=== PATIENT | female | born 1960 | race Caucasian/White ===

== ENCOUNTER → 2020-10-24 10:45 | Outpatient (BNVA) | payer OTHER, SELFPAY | PROVIDERS: PCP Internal Medicine; Visit Provider Family Medicine Adult Medicine | DX: M54.16 Radiculopathy, lumbar region (principal); M51.36 Other intervertebral disc degeneration, lumbar region | CPT/HCPCS: Q3014 ==

== ENCOUNTER 2021-01-11 12:59 | Outpatient (REF) | payer OTHER, SELFPAY ==
--- NOTE | ~2021-01-11 | US_ITS ---
EXAMINATION: PELVIC ULTRASOUND CLINICAL INFORMATION: Swelling COMPARISON: Previous pelvic ultrasound from 2010 TECHNIQUE: Transabdominal and transvaginal pelvic ultrasound was performed. Transvaginal exam was performed for better visualization of the uterus and ovaries. FINDINGS: Exam is limited due to patient body habitus. The uterus is retroverted and measures 5.7 x 3.4 x 5.7 cm in dimension. There are 2 calcified uterine lesions suggestive of hemorrhage measuring 2.1 x 1.8 x 2.3 cm in the left anterior uterine body and 5 x 2.8 x 4 cm in the right fundus. The endometrium is not well visualized. The endometrium does not appear thickened measuring 0.7 cm. There are nabothian cysts in the cervix. The right ovary is normal-appearing and measures 2.6 x 1.1 x 1.6 cm. The left ovary is not seen. There is no fluid in the pelvis. US/US pelvic complete IMPRESSION: Limited exam to a calcified uterine lesions suggestive of fibroids. These do not not appear appreciably changed in size from previous exam. The endometrium is not well visualized. Normal-appearing right ovary. Left ovary not seen.
--- NOTE | ~2021-01-11 | US_ITS ---
EXAMINATION: PELVIC ULTRASOUND CLINICAL INFORMATION: Swelling COMPARISON: Previous pelvic ultrasound from 2010 TECHNIQUE: Transabdominal and transvaginal pelvic ultrasound was performed. Transvaginal exam was performed for better visualization of the uterus and ovaries. FINDINGS: Exam is limited due to patient body habitus. The uterus is retroverted and measures 5.7 x 3.4 x 5.7 cm in dimension. There are 2 calcified uterine lesions suggestive of hemorrhage measuring 2.1 x 1.8 x 2.3 cm in the left anterior uterine body and 5 x 2.8 x 4 cm in the right fundus. The endometrium is not well visualized. The endometrium does not appear thickened measuring 0.7 cm. There are nabothian cysts in the cervix. The right ovary is normal-appearing and measures 2.6 x 1.1 x 1.6 cm. The left ovary is not seen. There is no fluid in the pelvis. US/US transvaginal IMPRESSION: Limited exam to a calcified uterine lesions suggestive of fibroids. These do not not appear appreciably changed in size from previous exam. The endometrium is not well visualized. Normal-appearing right ovary. Left ovary not seen.
== END 2021-01-11 13:00 | disposition home or self-care (01) ==
LOC: HO.US 12:59
PROVIDERS: PCP Internal Medicine; Visit Provider Internal Medicine
DX: R19.00 Intra-abdominal and pelvic swelling, mass and lump, unspecified site (principal)
CPT/HCPCS: 76830; 76856

== ENCOUNTER → 2021-05-21 13:14 | Outpatient (BNVA) | payer OTHER, SELFPAY | PROVIDERS: PCP Internal Medicine; Visit Provider Internal Medicine | DX: F11.20 Opioid dependence, uncomplicated (principal); F17.200 Nicotine dependence, unspecified, uncomplicated; Z51.81 Encounter for therapeutic drug level monitoring; Z79.899 Other long term (current) drug therapy; Z71.6 Tobacco abuse counseling | CPT/HCPCS: 80305; 99202 ==

== ENCOUNTER 2021-05-29 14:43 | Outpatient (REF) | payer OTHER, SELFPAY ==
[2021-05-29 17:26] LABS: Fentanyl, urine POSITIVE (Not Detect)
== END 2021-05-29 14:44 | disposition home or self-care (01) ==
LOC: HO.LNP 14:43
PROVIDERS: PCP Internal Medicine; Visit Provider Internal Medicine
DX: Z79.899 Other long term (current) drug therapy (principal)
CPT/HCPCS: 80307; 99212

== ENCOUNTER 2021-06-06 14:24 | Outpatient (REF) | payer OTHER, SELFPAY ==
[2021-06-06 18:29] LABS: Fentanyl, urine Not Detected (Not Detect)
== END 2021-06-06 14:25 | disposition home or self-care (01) ==
LOC: HO.LNP 14:24
PROVIDERS: PCP Internal Medicine; Visit Provider Internal Medicine
DX: F11.20 Opioid dependence, uncomplicated (principal); Z79.899 Other long term (current) drug therapy
CPT/HCPCS: 80305; 80307; 99212

== ENCOUNTER 2021-06-12 13:03 | Outpatient (REF) | payer OTHER, SELFPAY ==
[2021-06-12 15:35] LABS: Hematocrit 37.2 % (37-47); Hemoglobin 12.3 g/dl (12.0-16.0); Mean Corpuscular HGB Conc 33.1 g/dl (31.0-35.0); Mean Corpuscular Hemoglobin 29.6 pg (27.0-33.0); Mean Corpuscular Volume 89.4 fL (80-98); Mean Platelet Volume 9.5 fL (9.4-12.3); Platelet Count 293 X10*3/uL (160-400); Red Blood Count 4.16 X10*6/uL (4.20-5.50); Red Cell Distribution Width 14.1 % (11.0-16.0); White Blood Count 6.2 X10*3/uL (4.8-10.8)
[2021-06-12 15:58] LABS: Alanine Aminotransferase 6 U/L (0-31); Albumin Level 4.1 g/dL (3.5-5.0); Alkaline Phosphatase 79 U/L (39-117); Anion Gap 12 (12-20); Aspartate Amino Transferase 14 U/L (5-31); Bilirubin Direct < 0.2 mg/dL (0.0-0.5); Bilirubin Total 0.4 mg/dL (0.0-1.0); Blood Urea Nitrogen 6 mg/dL (9-16); Calcium 8.9 mg/dL (8.4-10.2); Carbon Dioxide 26 mmol/L (22-29); Chloride 105 mmol/L (96-108); Estimated Glomerular Filt Rate > 60; Glucose Random 132 mg/dL (60-115); Potassium 4.2 mmol/L (3.3-5.1); Sodium 139 mmol/L (135-145); Total Protein 6.9 g/dL (6.5-8.0)
[2021-06-13 07:57] LABS: Hepatitis A Antibody IgG Nonreactive (Nonreactive); ~Hepatitis A Antibody IgG 0.33 S/CO (0.00-0.99)
[2021-06-13 07:58] LABS: HBS Num1 2.51 mIU/mL (0-7.99); HBsAGNum1 0.21 S/CO (0.00-0.99); Hepatitis B Surface Antigen Negative (Negative); ~Hepatitis B Surface Antibody NONREACTIVE (Nonreactive)
[2021-06-13 08:06] LABS: HIV AB/AG Nonreactive (Nonreactive); HIV Num 1 0.06 S/CO (0.00-0.99); ~HepC Num1 0.15 S/CO (0.00-0.79); ~Hepatitis C Antibody Nonreactive (Nonreactive)
[2021-06-15 13:22] LABS: TS Negative Control Passed; TS Panel A 0; TS Panel B 0; TS Positive Control Passed; TSpotTB Negative (SeeBelow)
== END 2021-06-12 13:04 | disposition home or self-care (01) ==
LOC: HO.LAB 13:03
PROVIDERS: PCP Internal Medicine; Visit Provider Internal Medicine
DX: F11.20 Opioid dependence, uncomplicated (principal)
CPT/HCPCS: 36415; 80048; 80076; 80305; 85027; 86481; 86706; 86708; 86803; 87340; 87389; 99212

== ENCOUNTER 2021-06-15 13:56 | Outpatient (REF) | payer OTHER, SELFPAY ==
--- NOTE | ~2021-06-15 | XR_ITS ---
EXAMINATION: XR KNEE, LEFT XR FOOT, LEFT CLINICAL INFORMATION: Pain. COMPARISON: Most recent left knee MRI dated 06/12/2021. TECHNIQUE: AP, tunnel, lateral, and sunrise views of the left knee. AP, oblique, and lateral views of the left foot. FINDINGS: LEFT KNEE: Severe lateral compartment joint space narrowing with mild bony remodeling and subchondral sclerosis. Tricompartmental marginal osteophytes. No fracture or dislocation. Small joint effusion. No abnormal soft tissue calcification. LEFT FOOT: No acute fracture or dislocation. Joint space narrowing with marginal osteophytes at the 1st metatarsophalangeal joint and hallux sesamoids. Mild degenerative spurring at the dorsal midfoot. Focal soft tissue swelling overlying the dorsal midfoot, which could indicate an underlying synovial recess versus ganglion cyst. Plantar and dorsal calcaneal enthesophytes. XR/XR knee LT 2V IMPRESSION: Left knee: Severe lateral as well as mild medial and patellofemoral compartment osteoarthritis, progressed when compared to the prior MRI. Left foot: Degenerative arthritis at the dorsal midfoot. Overlying soft tissue swelling which could indicate a synovial recess or ganglion cyst. Osteoarthritis at the 1st metatarsophalangeal joint and hallux sesamoids. Plantar and dorsal calcaneal spurs.
--- NOTE | ~2021-06-15 | XR_ITS ---
EXAMINATION: XR KNEE, LEFT XR FOOT, LEFT CLINICAL INFORMATION: Pain. COMPARISON: Most recent left knee MRI dated 06/12/2021. TECHNIQUE: AP, tunnel, lateral, and sunrise views of the left knee. AP, oblique, and lateral views of the left foot. FINDINGS: LEFT KNEE: Severe lateral compartment joint space narrowing with mild bony remodeling and subchondral sclerosis. Tricompartmental marginal osteophytes. No fracture or dislocation. Small joint effusion. No abnormal soft tissue calcification. LEFT FOOT: No acute fracture or dislocation. Joint space narrowing with marginal osteophytes at the 1st metatarsophalangeal joint and hallux sesamoids. Mild degenerative spurring at the dorsal midfoot. Focal soft tissue swelling overlying the dorsal midfoot, which could indicate an underlying synovial recess versus ganglion cyst. Plantar and dorsal calcaneal enthesophytes. XR/XR foot LT 2V IMPRESSION: Left knee: Severe lateral as well as mild medial and patellofemoral compartment osteoarthritis, progressed when compared to the prior MRI. Left foot: Degenerative arthritis at the dorsal midfoot. Overlying soft tissue swelling which could indicate a synovial recess or ganglion cyst. Osteoarthritis at the 1st metatarsophalangeal joint and hallux sesamoids. Plantar and dorsal calcaneal spurs.
== END 2021-06-15 13:57 | disposition home or self-care (01) ==
LOC: HO.XRAY 13:56
PROVIDERS: PCP Internal Medicine; Visit Provider Internal Medicine
DX: M79.672 Pain in left foot (principal); M25.562 Pain in left knee
CPT/HCPCS: 73560; 73620

== ENCOUNTER → 2021-06-19 15:18 | Outpatient (BNVA) | payer OTHER, SELFPAY | PROVIDERS: Visit Provider Internal Medicine | DX: F11.90 Opioid use, unspecified, uncomplicated (principal) | CPT/HCPCS: 80305; 99212 ==

== ENCOUNTER → 2021-06-26 13:08 | Outpatient (BNVA) | payer OTHER, SELFPAY | PROVIDERS: PCP Internal Medicine; Visit Provider Internal Medicine | DX: F11.90 Opioid use, unspecified, uncomplicated (principal) | CPT/HCPCS: 80305; 99212 ==

== ENCOUNTER 2021-06-29 15:07 | Outpatient (REF) | payer OTHER, SELFPAY ==
--- NOTE | ~2021-06-29 | XR_ITS ---
EXAMINATION: XR HIP, RIGHT CLINICAL INFORMATION: Right hip pain COMPARISON: Previous pelvic ultrasound most recent December 2020 TECHNIQUE: Two views of the right hip. FINDINGS: No fracture or dislocation is seen. There is mild arthritis of the right hip joint with joint space narrowing and osteophyte formation. There is a large soft tissue calcification in the pelvis probably representing a calcified fibroid. Soft tissues are otherwise unremarkable. XR/XR hip RT min 2V IMPRESSION: Mild right hip arthritis.
== END 2021-06-29 15:08 | disposition home or self-care (01) ==
LOC: HO.XRAY 15:07
PROVIDERS: PCP Internal Medicine; Visit Provider Internal Medicine
DX: M25.551 Pain in right hip (principal)
CPT/HCPCS: 73502

== ENCOUNTER → 2021-07-10 14:08 | Outpatient (BNVA) | payer OTHER, SELFPAY | PROVIDERS: Visit Provider Internal Medicine | DX: F11.20 Opioid dependence, uncomplicated (principal); F17.210 Nicotine dependence, cigarettes, uncomplicated | CPT/HCPCS: 80305; 99212 ==

== ENCOUNTER → 2021-07-24 13:55 | Outpatient (BNVA) | payer OTHER, SELFPAY | PROVIDERS: Visit Provider Internal Medicine | DX: F11.90 Opioid use, unspecified, uncomplicated (principal) | CPT/HCPCS: 80305; 99212 ==

== ENCOUNTER → 2021-08-06 11:03 | Outpatient (BNVA) | payer OTHER, SELFPAY | PROVIDERS: Visit Provider Internal Medicine | DX: M54.16 Radiculopathy, lumbar region (principal) | CPT/HCPCS: 99202 ==

== ENCOUNTER → 2021-08-21 13:52 | Outpatient (BNVA) | payer OTHER, SELFPAY | PROVIDERS: PCP Internal Medicine; Visit Provider Internal Medicine | DX: F11.20 Opioid dependence, uncomplicated (principal); F17.210 Nicotine dependence, cigarettes, uncomplicated | CPT/HCPCS: 80305; 99212 ==

== ENCOUNTER → 2021-08-28 13:58 | Outpatient (BNVA) | payer OTHER, SELFPAY | PROVIDERS: PCP Internal Medicine; Visit Provider Internal Medicine | DX: Z51.81 Encounter for therapeutic drug level monitoring (principal); F11.20 Opioid dependence, uncomplicated | CPT/HCPCS: 80305; 99212 ==

== ENCOUNTER 2021-08-28 15:00 | Outpatient (RCR) | payer OTHER, SELFPAY | END 2021-09-11 15:17 | disposition home or self-care (01) | LOC: HO.PT 15:00 | PROVIDERS: PCP Internal Medicine; Visit Provider Internal Medicine | DX: M54.16 Radiculopathy, lumbar region (principal) | CPT/HCPCS: 97110; 97112; 97162 ==

== ENCOUNTER → 2021-09-25 13:21 | Outpatient (BNVA) | payer OTHER, SELFPAY | PROVIDERS: Visit Provider Internal Medicine | DX: Z51.81 Encounter for therapeutic drug level monitoring (principal); F11.20 Opioid dependence, uncomplicated | CPT/HCPCS: 80305; 99212 ==

== ENCOUNTER → 2021-10-23 14:42 | Outpatient (BNVA) | payer OTHER, SELFPAY | PROVIDERS: Visit Provider Internal Medicine | DX: Z51.81 Encounter for therapeutic drug level monitoring (principal); F11.20 Opioid dependence, uncomplicated | CPT/HCPCS: 80305; 99212 ==

== ENCOUNTER → 2021-12-26 14:23 | Outpatient (BNVA) | payer OTHER, SELFPAY | PROVIDERS: Visit Provider Internal Medicine | DX: Z51.81 Encounter for therapeutic drug level monitoring (principal); F11.20 Opioid dependence, uncomplicated | CPT/HCPCS: 80305; 99212 ==

== ENCOUNTER → 2022-02-20 13:51 | Outpatient (BNVA) | payer OTHER, SELFPAY | PROVIDERS: Visit Provider Internal Medicine | DX: Z51.81 Encounter for therapeutic drug level monitoring (principal); F11.20 Opioid dependence, uncomplicated | CPT/HCPCS: 80305 ==

== ENCOUNTER 2022-02-20 17:54 | Outpatient (REF) | payer OTHER, SELFPAY ==
[2022-02-27 09:21] LABS: Codeine, Ur NEGATIVE; Hydrocodone, Ur NEGATIVE; Hydromorphone, Ur NEGATIVE; Morphine, Ur NEGATIVE; Norhydrocodone, Ur NEGATIVE; Oxycodone, Ur NEGATIVE; Oxymorphone, Ur NEGATIVE
[2022-02-27 09:22] LABS: Noroxycodone, Ur NEGATIVE
== END 2022-02-20 17:55 | disposition home or self-care (01) ==
LOC: HO.LNP 17:54
PROVIDERS: Visit Provider Internal Medicine
DX: F11.20 Opioid dependence, uncomplicated (principal)
CPT/HCPCS: 80364; 80365

== ENCOUNTER 2022-04-02 10:14 | Outpatient (REF) | payer OTHER, MEDICAID, SELFPAY ==
--- NOTE | ~2022-04-02 | XR_ITS ---
EXAMINATION: XR WRIST, RIGHT CLINICAL INFORMATION: Right wrist pain. COMPARISON: None. TECHNIQUE: PA, lateral, and oblique views of the right wrist. FINDINGS: The bones and soft tissues are unremarkable. A tiny cyst is seen in the lunate. No fracture. Alignment is anatomic with normal joint spaces. No erosions. No chondrocalcinosis. XR/XR wrist RT min 3V IMPRESSION: Unremarkable right wrist.
== END 2022-04-02 10:15 | disposition home or self-care (01) ==
LOC: HO.HOSX 10:14
PROVIDERS: Visit Provider Orthopaedic Surgery
DX: M25.531 Pain in right wrist (principal); R20.0 Anesthesia of skin; R20.2 Paresthesia of skin
CPT/HCPCS: 73110; 99202

== ENCOUNTER → 2022-04-24 13:07 | Outpatient (BNVA) | payer OTHER, MEDICAID, SELFPAY | PROVIDERS: PCP Internal Medicine; Visit Provider Internal Medicine | DX: F11.20 Opioid dependence, uncomplicated (principal) | CPT/HCPCS: 99212 ==

== ENCOUNTER → 2022-06-18 13:03 | Outpatient (BNVA) | payer OTHER, MEDICAID, SELFPAY | PROVIDERS: PCP Internal Medicine; Visit Provider Internal Medicine | DX: Z51.81 Encounter for therapeutic drug level monitoring (principal); F11.20 Opioid dependence, uncomplicated | CPT/HCPCS: 99212 ==

== ENCOUNTER 2022-08-01 12:25 | Outpatient (REF) | payer MEDICARE, MEDICAID, SELFPAY ==
--- NOTE | 2022-08-01 10:00 | EMG_ITS ---
Bilateral median and ulnar motor and sensory studies were performed. Bilateral radial sensory studies were performed and paraspinal muscles were tested with a needle. IMPRESSION: Moderately severe bilateral median neuropathy across carpal tunnel. MD WINDY Chapin/DARNELL / [id number]
== END 2022-08-01 12:26 | disposition home or self-care (01) ==
LOC: HO.NEURO 12:25
PROVIDERS: PCP Internal Medicine; Visit Provider Orthopaedic Surgery
DX: R20.0 Anesthesia of skin (principal)
CPT/HCPCS: 95886; 95911

== ENCOUNTER → 2022-08-19 14:42 | Outpatient (BNVA) | payer MEDICARE, MEDICAID, SELFPAY | PROVIDERS: PCP Internal Medicine; Visit Provider Internal Medicine | DX: Z51.81 Encounter for therapeutic drug level monitoring (principal); F11.20 Opioid dependence, uncomplicated | CPT/HCPCS: 99212 ==

== ENCOUNTER → 2022-09-17 14:01 | Outpatient (BNVA) | payer MEDICARE, MEDICAID, SELFPAY | PROVIDERS: PCP Internal Medicine; Visit Provider Orthopaedic Surgery | DX: G56.03 Carpal tunnel syndrome, bilateral upper limbs (principal); F11.20 Opioid dependence, uncomplicated; Z72.0 Tobacco use | CPT/HCPCS: 99202 ==

== ENCOUNTER → 2022-10-14 13:02 | Outpatient (BNVA) | payer MEDICARE, MEDICAID, SELFPAY | PROVIDERS: PCP Internal Medicine; Visit Provider Nurse Practitioner Psychiatric/Mental Health | DX: F11.20 Opioid dependence, uncomplicated (principal); M51.16 Intervertebral disc disorders with radiculopathy, lumbar region; M96.1 Postlaminectomy syndrome, not elsewhere classified; F17.210 Nicotine dependence, cigarettes, uncomplicated; Z51.81 Encounter for therapeutic drug level monitoring; Z79.899 Other long term (current) drug therapy | CPT/HCPCS: 80305; 99212 ==

== ENCOUNTER 2022-11-28 14:29 | Day surgery (SDC) | payer MEDICARE, MEDICAID, SELFPAY ==
[2022-11-28 14:45] VITALS: BMI 23.3
--- NOTE | 2022-11-28 15:01 | PC.NURSE ---
report given to zakiya COHEN in pacu at this time.
--- NOTE | 2022-11-28 15:10 | MHC.SHP ---
Pre-Procedural Eval Section A Date of Service: 11/28/22 The patient is an INPATIENT: No Changes since office visit: No Cold of Flu in the past 2 weeks, No New Medical Problems, No Changes in Medication and No Patient answered all questions The History & Physical has been completed within 30 days and I have reviewed it.: Yes Section B Chief Complaint: Carpal tunnel syndrome, right upper limb Allergies: Allergies Allergy/AdvReac Type Severity Reaction Status Date / Time No Known Allergies Allergy Verified 10/14/22 13:17 [No Known Allergies*] Plan I have reviewed the history and physical and performed a pertinent physical examination on my patient. No changes have occurred unless specified. Time Spent With Patient Time: Total time managing care of this patient today ____ minutes.
--- NOTE | 2022-11-28 15:10 | W.PM.OPN ---
Operative Note Operative Note Date of Service: 11/28/22 Narrative: Preop diagnosis: 1. Right Carpal tunnel syndrome Postop diagnosis: same Procedure: 1. Right Carpal tunnel release Surgeon: Nicol Milton MD Anesthesia: local block using 1% lidocaine with epinephrine Findings: Thickened transverse carpal ligament. EBL: Less than 5 mL Specimens: None Complications: None Disposition: Brought to recovery room in stable condition Plan: Follow-up for 10-14 days for wound check and suture removal Indications: The patient is 62 years old, with right carpal tunnel syndrome that has been unresponsive to nonoperative management. The risks and benefits of operative treatment including but not limited to risk of damage to blood vessels, nerves, tendons, infection, persistent pain, persistent symptoms, or possible need for additional surgery were discussed with the patient and the patient wishes to proceed with surgery. Procedure: Once consent was obtained a local block was performed using a combination of 1% lidocaine with epinephrine. The patient was then brought back to the operating suite and placed on the operative table in supine position. The right upper extremity was prepped and draped in a standard surgical fashion. Once assured that we had a good block, a 2.0 cm longitudinal incision was made centered over the carpal tunnel. The incision was made through the skin to the subcutaneous tissues using a #15 blade. Dissection was made down to the level of the transverse carpal ligament with care being taken to protect the palmar cutaneous nerve. Once the transverse carpal ligament was clearly visualized, a longitudinal incision was made in the transverse carpal ligament 1st using a #15 blade, then using tenotomy scissors under direct visualization. Care was taken to look for and protect the motor branch of the median nerve when seen in this area. Once satisfied with our carpal tunnel release the wound was copiously irrigated with normal saline and hemostasis was obtained with a brief period of local pressure. The skin edges were reapproximated with some 5.0 nylon suture material and a sterile dressing was applied. The patient appears to have tolerated the procedure well and with no complications. All digits were well vascularized at the conclusion of the case.
--- NOTE | 2022-11-28 15:12 | PC.NURSE ---
michael preop screen locked by user....patient signing out of preop at this time 15:12 11/28/22 to avani Sampson
[2022-11-28 15:39] VITALS: BP 128/79; RESP 16
== END 2022-11-28 15:56 | disposition home or self-care (01) ==
PROVIDERS: PCP Internal Medicine; Visit Provider Orthopaedic Surgery
PROC: (CPT 64721; principal; 2022-11-28 12:00)
DX: G56.01 Carpal tunnel syndrome, right upper limb (principal); R20.0 Anesthesia of skin; R20.2 Paresthesia of skin; F11.90 Opioid use, unspecified, uncomplicated; M51.36 Other intervertebral disc degeneration, lumbar region; M96.1 Postlaminectomy syndrome, not elsewhere classified; F17.210 Nicotine dependence, cigarettes, uncomplicated; F12.90 Cannabis use, unspecified, uncomplicated
CPT/HCPCS: 64721; J0171

== ENCOUNTER → 2022-12-11 14:15 | Outpatient (BNVA) | payer MEDICARE, MEDICAID, SELFPAY | PROVIDERS: PCP Internal Medicine; Visit Provider Orthopaedic Surgery | DX: Z48.811 Encounter for surgical aftercare following surgery on the nervous system (principal); Z86.69 Personal history of other diseases of the nervous system and sense organs | CPT/HCPCS: 99212 ==

== ENCOUNTER → 2022-12-17 14:23 | Outpatient (BNVA) | payer MEDICARE, MEDICAID, SELFPAY | PROVIDERS: PCP Internal Medicine; Visit Provider Nurse Practitioner Psychiatric/Mental Health | DX: F11.20 Opioid dependence, uncomplicated (principal); M96.1 Postlaminectomy syndrome, not elsewhere classified; F17.210 Nicotine dependence, cigarettes, uncomplicated; Z51.81 Encounter for therapeutic drug level monitoring; Z79.899 Other long term (current) drug therapy | CPT/HCPCS: 99212 ==

== ENCOUNTER → 2023-02-11 14:14 | Outpatient (BNVA) | payer MEDICARE, MEDICAID, SELFPAY | PROVIDERS: PCP Internal Medicine; Visit Provider Nurse Practitioner Psychiatric/Mental Health | DX: Z51.81 Encounter for therapeutic drug level monitoring (principal); F11.20 Opioid dependence, uncomplicated | CPT/HCPCS: 99212 ==

== ENCOUNTER 2023-03-24 09:23 | Outpatient (AMB) | payer MEDICARE, MEDICAID, SELFPAY ==
--- NOTE | 2023-03-24 09:26 | MHC.PC.OV ---
Vital Signs 03/24/23 09:27 Height 5 ft 6 in Weight 144 lb 4 oz BMI 23.3 BP 130/70 Blood Pressure Location Lt brachial Position Sitting Pulse 69 Pulse Source Pulse Oximeter Pulse Oximetry (%) 96 Oxygen Delivery Method Room Air Intake Visit Reasons: left leg pain Intake Note: Patient is here today for left leg pain. 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 Accompanied by: Self / Same As Patient Allergies No Known Allergies [No Known Allergies*] Allergy (Verified 03/24/23 09:27) Medication List - Last Reconciled 03/24/23 by David Lopez MD buprenorphine-naloxone 8-2 mg (Suboxone) 3 film sublingual Q24H 30 days cyclobenzaprine 10 mg PO TID naloxone 4 mg/actuation (Narcan) 4 mg intranasal Q3M PRN Tobacco use date assessed: 03/24/23 Dental Screening Dental Screen Date: 03/24/23 Did you have a dental visit in the last 12 months?: No Did you have a dental problem in the last 6 months where you did not have access to dental care?: No Was dental information given to patient?: No HPI left leg pain HPI Details left leg pain in calf and thigh with some swelling for a week PFSH Medical History Disc degeneration, lumbar Fentanyl use disorder, moderate Opioid use disorder Right lumbar radiculopathy Tobacco use disorder Surgical History Cervical post-laminectomy syndrome H/O section History of carpal tunnel surgery of left wrist History of foot surgery Family History Father Stroke Mother Ovarian cancer Brother No problems noted. Son No problems noted. Son No problems noted. 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 1. Little interest or pleasure in doing things: not at all 2. Feeling down, depressed, or hopeless: not at all 3. Trouble falling or staying asleep, or sleeping too much: not at all 4. Feeling tired or having little energy: not at all 5. Poor appetite or overeating: not at all 6. Feeling bad about yourself - or that you are a failure or have let yourself or your family down: not at all 7. Trouble concentrating on things, such as reading the newspaper or watching television: not at all 8. Moving or speaking so slowly that other people could have noticed. Or the opposite - being so fidgety or restless that you have been moving around a lot more than usual: not at all 9. Thoughts that you would be better off or of hurting yourself in some way: not at all Total score: 0 Depression Screening Interpretation: Negative Source: Developed by Drs. Raheel Bravo, Sabine Talavera, Que Ron and colleagues, with an educational dianne from [employer]. Thrive Questionnaire Date Thrive assessed: 03/24/23 I am a: Patient What is your living situation today?: I have a steady place to live Within the past 12 months, did the food you bought not last and you didn't have the money to get more?: Never true Within the past 12 months, did you worry whether your food would run out before you got money to buy more?: Never true Do you have trouble paying for medicines?: No Do you have trouble getting transportation to medical appointments?: No Do you have trouble paying your heating and electricity bill?: No Do you have trouble taking care of your child, family member or friend?: No Do you have trouble with day-to-day activities such as bathing, preparing meals, shopping, managing finances, etc.?: No Are you currently unemployed and looking for a job?: No Are you interested in more education?: No Currently or been in a relationship where the following occur: no concerns reported AUDIT C Alcohol Use Questionnaire (AUDIT-C) 1. How often do you have a drink containing alcohol?: Never Total Score: 0 FRANCISCO-7 AMB Questionnaire FRANCISCO-7 Date FRANCISCO - 7 assessed: 03/24/23 Feeling nervous, anxious, or on edge: 0 = Not at all Not being able to stop or control worryin = Not at all Worrying too much about different things: 0 = Not at all Trouble relaxin = Not at all Being so restless that it is hard to sit still: 0 = Not at all Becoming easily annoyed or irritable: 0 = Not at all Feeling afraid as if something awful might happen: 0 = Not at all Total FRANCISCO-7 score (0-4 normal; 5-9 mild; 10-14 moderate; 15-21 severe): 0 Source: Developed by Drs. Raheel Bravo, Sabine Talavera, Que Ron and colleagues, with an educational dianne from [employer]. Review of Systems Const Denies chills, Denies headache(s) and Denies weight loss ENT Denies headache(s) Card Denies chest pain, Denies syncope, Denies irregular heart rhythm and Denies dyspnea Resp Denies chest congestion, Denies cough and Denies dyspnea GI Denies abdominal pain, Denies change in stool character, Denies nausea and Denies vomiting Musc Denies deformity and Denies joint swelling Neuro Denies syncope and Denies headache(s) Physical exam (Primary Care) Vital Signs: Last Vital Signs Pulse 69 03/24/23 09:27 BP 130/70 03/24/23 09:27 Pulse Ox 96 03/24/23 09:27 Oxygen Delivery Method Room Air 03/24/23 09:27 BMI result Body Mass Index 23.3 Tobacco/Smoking Status: Tobacco use Status Tobacco use date assessed 03/24/23 03/24/23 09:33 Patient Tobacco Use Status Current everyday Tobacco 03/24/23 09:33 Tobacco use type Cigarette 03/24/23 09:33 e-Cigarette/Vaping Use Never Used 03/24/23 09:33 PHQ-9: PHQ-9 Score PHQ-9: Total score 0 03/24/23 09:33 Depression Screening Interpretation: Negative Thrive Assessment: Date of Thrive Assessment Date Thrive assessed 03/24/23 03/24/23 09:33 Currently or been in a relationship where the following occur: no concerns reported Const General: cooperative, comfortable and no acute distress Resp Effort & Inspection: normal respiratory effort Auscultation: clear to auscultation bilaterally Percussion: percussion normal Cardio Jugular venous distension: no JVD Rate: regular rate Rhythm: regular rhythm GI Inspection: Yes normal to inspection Extrem Other: 1+ edema left lower ext Assessment and Plan Assessment & Plan (1) Leg pain: Code(s): M79.606 - Pain in leg, unspecified Plan: us and rx Orders: Orders US venous duplex LE LT Today R60.0 - Localized edema Medications: New methylprednisolone (Medrol (Krishna)) PO PER PKG DIR 21 ea 0RF Refilled cyclobenzaprine 10 mg PO TID 90 tabs 8RF Coding Level of Care Code Est Pt Level 3 (61127) Diagnoses Leg pain M79.606
[2023-03-24 09:27] VITALS: BP 130/70; PULSE 69; O2SAT 96; BMI 23.3
== END 2023-03-24 09:48 | disposition home or self-care (01) ==
PROVIDERS: PCP Internal Medicine; Visit Provider Internal Medicine
DX: M79.606 Pain in leg, unspecified (principal)
CPT/HCPCS: 99213

== ENCOUNTER 2023-04-02 13:42 | Outpatient (REF) | payer MEDICARE, MEDICAID, SELFPAY ==
--- NOTE | ~2023-04-02 | US_ITS ---
EXAMINATION: US VENOUS ULTRASOUND WITH DOPPLER LOWER EXTREMITY, LEFT CLINICAL INFORMATION: Left leg swelling. COMPARISON: None available. TECHNIQUE: Ultrasound of the deep veins is performed from the hip to the calf with compression sonography and color and pulse Doppler assessment. Spectral analysis with color-flow imaging is performed. FINDINGS: There is normal venous compression and respiratory variation and augmented flow. The visualized common femoral vein, superficial femoral vein, profunda femoral vein, popliteal vein, and the trifurcation region shows no evidence of deep venous thrombosis. There is no significant popliteal fossa cyst. If the patient's symptoms persist, followup ultrasound in 5 days 7 days might be of value to exclude proximal propagation from a non-visualized calf vein. US/US venous duplex LE LT IMPRESSION: No DVT demonstrated in the left lower extremity.
== END 2023-04-02 13:43 | disposition home or self-care (01) ==
LOC: HO.US 13:42
PROVIDERS: PCP Internal Medicine; Visit Provider Internal Medicine
DX: R60.0 Localized edema (principal); M79.89 Other specified soft tissue disorders
CPT/HCPCS: 93971

== ENCOUNTER 2023-04-14 10:23 | Outpatient (AMB) | payer MEDICARE, MEDICAID, SELFPAY ==
--- NOTE | 2023-04-14 10:23 | A.OFFVIS_ITS ---
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 Denies any side effects, including constipation Reports Percocet over the wkend due to ongoing calf pain. Seen by PCP and ultrasound completed-nothing found. Risk reduction discussion. Patient reporting this is not a usual occurrence. Moved into new home recently. Very happy about this [facility] Medical History Disc degeneration, lumbar Fentanyl use disorder, moderate Opioid use disorder Right lumbar radiculopathy Tobacco use disorder Surgical History Cervical post-laminectomy syndrome H/O section History of carpal tunnel surgery of left wrist History of foot surgery Family History Father Stroke Mother Ovarian cancer Brother No problems noted. Son No problems noted. Son No problems noted. 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 Cognitive needs: No Hearing needs: No Vision needs: No Review of Systems Const Reports as per HPI and Reports no additional complaints Physical Exam Vital Signs: Last Vital Signs Pulse 78 04/14/23 10:34 BP 134/84 04/14/23 10:34 Pulse Ox 98 04/14/23 10:34 Oxygen Delivery Method Room Air 04/14/23 10:34 Const General: cooperative, healthy appearing and no acute distress Psych Appearance: well kempt Speech and movement: Clear speech present Results AMB 14 Panel Urine Drug Screen Urine Marijuana (THC) Positive Last Edit by Nickie Steel CMA on 04/14/23 10:37 Urine Cocaine Negative Last Edit by Nickie Steel CMA on 04/14/23 10:37 Urine Morphine Negative Last Edit by Nickie Steel CMA on 04/14/23 10:37 Urine Methamphetamine Negative Last Edit by Nickie Steel CMA on 04/14/23 10:37 Urine Amphetamine Negative Last Edit by Nickie Steel CMA on 04/14/23 10:3 7 Urine Benzodiazepine Negative Last Edit by Nickie Steel CMA on 04/14/23 10:37 Urine Barbiturates Negative Last Edit by Nickie Steel CMA on 04/14/23 10: 37 Urine Methadone Negative Last Edit by Nickie Steel CMA on 04/14/23 10:37 Urine Buprenorphine Positive Last Edit by Nickie Steel CMA on 04/14/23 10 :37 Urine Tricyclic Antidepressant Negative Last Edit by Nickie Steel CMA on 04/14/23 10:37 Urine MDMA Negative Last Edit by Nickie Steel CMA on 04/14/23 10:37 Urine Oxycodone Positive Last Edit by Nickie Steel CMA on 04/14/23 10:37 Urine Phencyclidine Negative Last Edit by Nickie Steel CMA on 04/14/23 10 :37 Urine Propoxyphene Negative Last Edit by Nickie Steel CMA on 04/14/23 10: 37 Results Reviewed Results Reviewed: Laboratory Last Values POC Urine Buprenorphine Positive 04/14/23 10:24 POC Urine Morphine Negative 04/14/23 10:24 POC Urine Oxycodone Positive 04/14/23 10:24 POC Urine Methadone Negative 04/14/23 10:24 POC Urine Propoxyphene Negative 04/14/23 10:24 POC Urine Barbiturates Negative 04/14/23 10:24 POC U Tricyclic Antidpr Negative 04/14/23 10:24 POC Urine PCP Negative 04/14/23 10:24 POC Ur Amphetamines Negative 04/14/23 10:24 POC Ur Methamphetamine Negative 04/14/23 10:24 POC Urine MDMA Negative 04/14/23 10:24 POC Ur Benzodiazepine Negative 04/14/23 10:24 POC Urine Cocaine Negative 04/14/23 10:24 POC Ur Marijuana (THC) Positive 04/14/23 10:24 Assessment & Plan Assessment & Plan (1) Opioid use disorder: Code(s): F11.99 - Opioid use, unspecified with unspecified opioid-induced disorder Plan: * Continue suboxone at current dose * follow up 8 weeks * encouraged to call office if necessary before next scheduled appt. Orders: Orders AMB 14 Panel Urine Drug Screen Today Z51.81 - Encounter for therapeutic drug level monitoring Medications: Changed From buprenorphine-naloxone 8-2 mg (Suboxone) place 1 strip/tab under (each) side of tongue 3 film sublingual Q24H 30 days 90 ea 1RF To buprenorphine-naloxone 8-2 mg (Suboxone) 1 film sublingual TID 90 ea 1RF 30 days Coding Level of Care Code Est Pt Level 3 (79649) Diagnoses Opioid use disorder F11.99
[2023-04-14 10:34] VITALS: BP 134/84; PULSE 78; O2SAT 98
== END 2023-04-14 11:02 | disposition home or self-care (01) ==
LOC: HO.HCC 10:23
PROVIDERS: PCP Internal Medicine; Visit Provider Nurse Practitioner Psychiatric/Mental Health
DX: F11.99 Opioid use, unspecified with unspecified opioid-induced disorder (principal)
CPT/HCPCS: 99213

== ENCOUNTER → 2023-04-14 10:23 | Outpatient (BNVA) | payer MEDICARE, MEDICAID, SELFPAY | PROVIDERS: PCP Internal Medicine; Visit Provider Nurse Practitioner Psychiatric/Mental Health | DX: F11.20 Opioid dependence, uncomplicated (principal); Z51.81 Encounter for therapeutic drug level monitoring; Z79.899 Other long term (current) drug therapy | CPT/HCPCS: 80305; 99212 ==

== ENCOUNTER 2023-06-12 13:01 | Outpatient (AMB) | payer MEDICARE, MEDICAID, SELFPAY ==
--- NOTE | 2023-06-12 13:02 | A.OFFVIS_ITS ---
Intake Vital Signs 06/12/23 13:09 BP 140/86 H Blood Pressure Location Lt radial Position Sitting Pulse 74 Pulse Source Pulse Oximeter Pulse Oximetry (%) 98 Oxygen Delivery Method Room Air Intake Visit Reasons: mat visit Intake Note: The patient presents for a mat visit Flatbed Press Operator Required: No Allergies No Known Allergies [No Known Allergies*] Allergy (Verified 06/12/23 13:10) HPI mat visit HPI Details Pt presents for OUD treatment follow up Currently being prescribed Suboxone 8mg TID Denies any side effects related to medication Settling into her new home. [facility] Medical History Disc degeneration, lumbar Fentanyl use disorder, moderate Opioid use disorder Right lumbar radiculopathy Tobacco use disorder Surgical History Cervical post-laminectomy syndrome H/O section History of carpal tunnel surgery of left wrist History of foot surgery Family History Father Stroke Mother Ovarian cancer Brother No problems noted. Son No problems noted. Son No problems noted. 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 Cognitive needs: No Hearing needs: No Vision needs: No Review of Systems Const Reports as per HPI and Reports no additional complaints Physical Exam Vital Signs: Last Vital Signs Pulse 74 06/12/23 13:09 BP 140/86 H 06/12/23 13:09 Pulse Ox 98 06/12/23 13:09 Oxygen Delivery Method Room Air 06/12/23 13:09 Const General: cooperative, healthy appearing and no acute distress Psych Appearance: well kempt Speech and movement: Clear speech present Assessment & Plan Assessment & Plan (1) Opioid use disorder: Code(s): F11.99 - Opioid use, unspecified with unspecified opioid-induced disorder Plan: * Continue suboxone at current dose * follow up 8 weeks * encouraged to call office if necessary before next scheduled appt. Medications: Refilled buprenorphine-naloxone 8-2 mg (Suboxone) 1 film sublingual TID 30 days 90 ea 1RF Coding Level of Care Code Est Pt Level 3 (48925) Diagnoses Opioid use disorder F11.99
[2023-06-12 13:09] VITALS: BP 140/86; PULSE 74; O2SAT 98
== END 2023-06-12 13:46 | disposition home or self-care (01) ==
PROVIDERS: PCP Internal Medicine; Visit Provider Nurse Practitioner Psychiatric/Mental Health
DX: F11.99 Opioid use, unspecified with unspecified opioid-induced disorder (principal)
CPT/HCPCS: 99213

== ENCOUNTER → 2023-06-12 13:01 | Outpatient (BNVA) | payer MEDICARE, MEDICAID, SELFPAY | PROVIDERS: PCP Internal Medicine; Visit Provider Nurse Practitioner Psychiatric/Mental Health | DX: F11.20 Opioid dependence, uncomplicated (principal) | CPT/HCPCS: 99212 ==

== ENCOUNTER 2023-07-31 11:29 | Outpatient (AMB) | payer MEDICARE, MEDICAID, SELFPAY ==
[2023-07-31 11:30] VITALS: BP 120/82; PULSE 83; O2SAT 99; BMI 22.6
--- NOTE | 2023-07-31 11:30 | MHC.PC.OV ---
Vital Signs 07/31/23 11:30 Height 5 ft 6 in Weight 140 lb BMI 22.6 BP 120/82 Blood Pressure Location Lt brachial Position Sitting Pulse 83 Pulse Source Pulse Oximeter Pulse Oximetry (%) 99 Oxygen Delivery Method Room Air Intake Visit Reasons: Left hammer toe correction, 08/15, EKG/Labs needed Hot Room Attendant Required: No Partition Assembly Machine Operator: Not Required per policy Accompanied by: Self / Same As Patient Allergies No Known Allergies [No Known Allergies*] Allergy (Verified 07/31/23 11:31) Medication List - Last Reconciled 08/01/23 by David Lopez MD buprenorphine-naloxone 8-2 mg (Suboxone) 1 film sublingual TID 30 days cyclobenzaprine 10 mg PO TID Tobacco use date assessed: 03/24/23 Dental Screening Dental Screen Date: 07/31/23 Did you have a dental visit in the last 12 months?: No Did you have a dental problem in the last 6 months where you did not have access to dental care?: No Was dental information given to patient?: Patient has dentist HPI Left hammer toe correction, 08/15, EKG/Labs needed HPI Details to have podiatric surgery on her left foot; has chronic narcotic use and is on Suboxone; doing well and compliant; no history of CAD [facility] Medical History Tobacco use disorder Fentanyl use disorder, moderate Opioid use disorder Disc degeneration, lumbar Right lumbar radiculopathy Surgical History History of foot surgery History of carpal tunnel surgery of left wrist H/O section Cervical post-laminectomy syndrome Family History Father Stroke Mother Ovarian cancer Brother No problems noted. Son No problems noted. Son No problems noted. 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 Raheel Bravo, Sabine Talavera, Que Ron and colleagues, with an educational dianne from [employer]. Review of Systems Const Denies chills, Denies fatigue, Denies headache(s) and Denies weight loss Eyes Denies change in vision, Denies diplopia and Denies eye pain ENT Denies vertigo, Denies dizziness, Denies headache(s) and Denies nasal discharge Card Denies chest pain, Denies rapid heart rate and Denies dyspnea on exertion Resp Denies chest congestion, Denies cough, Denies pain with cough and Denies dyspnea on exertion GI Denies abdominal pain, Denies hematochezia and Denies change in bowel habits Musc Denies myalgias, Denies arthralgias and Denies joint swelling Skin/Breast Denies lesions and Denies unusual bruising Neuro Denies vertigo, Denies dizziness, Denies headache(s) and Denies focal weakness Endo Denies fatigue Physical exam (Primary Care) Vital Signs: Last Vital Signs Pulse 83 07/31/23 11:30 BP 120/82 07/31/23 11:30 Pulse Ox 99 07/31/23 11:30 Oxygen Delivery Method Room Air 07/31/23 11:30 BMI result Body Mass Index 22.6 Tobacco/Smoking Status: Tobacco use Status Tobacco use date assessed 03/24/23 07/31/23 11:35 Patient Tobacco Use Status Current everyday Tobacco 07/31/23 11:35 Tobacco use type Cigarette 07/31/23 11:35 e-Cigarette/Vaping Use Never Used 07/31/23 11:35 Thrive Assessment: Date of Thrive Assessment Date Thrive assessed 03/24/23 07/31/23 11:35 Const General: cooperative, healthy appearing and no acute distress Orientation/consciousness: oriented to person, oriented to place and oriented to time HENMT Head: Yes normal to inspection, Yes normocephalic and Yes atraumatic Mouth: Normal oral and palatal mucosa present and tongue normal Throat: Yes posterior oropharynx normal and Yes uvula midline Eyes General: appearance normal, both eyes and all related structures Neck Neck: Yes normal visual inspection, Yes full ROM and Yes no lymphadenopathy Thyroid: Thyroid normal Carotids: normal carotid upstroke Chest Chest palpation & inspection: normal inspection of the chest Resp Effort & Inspection: normal respiratory effort and able to speak in complete sentences Auscultation: clear to auscultation bilaterally Cardio Jugular venous distension: no JVD Palpation: normal PMI Rate: regular rate Rhythm: regular rhythm Heart sounds: S1 normal heart sound present and S2 normal heart sound present GI Inspection: Yes normal to inspection Palpation (GI): Soft to palpation and No hepatosplenomegaly present Auscultation: normal bowel sounds General: Yes no CVA tenderness Back/Spine/Pelvis Back: no CVA tenderness Skin General skin exam: no rashes or lesions noted Neuro General: oriented to person, oriented to place and oriented to time Extrem General: Yes normal to inspection and Yes full ROM Assessment and Plan Assessment & Plan (1) Preop exam for internal medicine: Code(s): Z01.818 - Encounter for other preprocedural examination Plan: low risk for cardiovascular complications; cleared for surgery (2) Opioid use disorder: Code(s): F11.99 - Opioid use, unspecified with unspecified opioid-induced disorder Plan: stable and compliant on regimen Orders: Orders Complete Blood Count Auto Diff 07/31/23 D64.9 - Anemia, unspecified ECG 12 lead EKG 07/31/23 Z01.818 - Encounter for other preprocedural examination Coding Level of Care Code Est Pt Level 4 (01510) Diagnoses Preop exam for internal medicine Z01.818 Opioid use disorder F11.99
== END 2023-07-31 11:44 | disposition home or self-care (01) ==
PROVIDERS: PCP Internal Medicine; Visit Provider Internal Medicine
DX: Z01.818 Encounter for other preprocedural examination (principal); F11.99 Opioid use, unspecified with unspecified opioid-induced disorder
CPT/HCPCS: 99214

== ENCOUNTER 2023-07-31 11:51 | Outpatient (REF) | payer MEDICARE, MEDICAID, SELFPAY ==
--- NOTE | 2023-07-31 12:03 | ECG_ITS ---
Test Reason : PRE OP Blood Pressure : / mmHG Vent. Rate : 073 BPM Atrial Rate : 073 BPM P-R Int : 138 ms QRS Dur : 094 ms QT Int : 388 ms P-R-T Axes : 074 054 049 degrees QTc Int : 427 ms Normal sinus rhythm Normal ECG When compared with ECG of 23-APR-2019 14:05, No significant change was found Referred By: David Lopez Electronically Signed By:ANTONIA WHEAT MD
[2023-07-31 12:17] LABS: MANUAL DIFF FLAG NO
[2023-07-31 12:34] LABS: Basophils Absolute Auto 0.1 X10*3/uL (0.0-0.2); Basophils Percent Auto 0.9 % (0-2); Eosinophils Absolute Auto 0.1 X10*3/uL (0.0-0.4); Eosinophils Percent Auto 1.2 % (0-4); Hematocrit 40.7 % (37.0-47.0); Hemoglobin 13.2 g/dl (12.0-16.0); Imm Gran Abs Auto 0.02 X10*3/uL (0.00-0.03); Imm Gran Pct Auto 0.2 % (0.0-0.4); Lymphocytes Absolute Auto 1.7 X10*3/uL (1.2-4.9); Lymphocytes Percent Auto 19.4 % (20-40); Mean Corpuscular HGB Conc 32.4 g/dl (31.0-35.0); Mean Corpuscular Hemoglobin 28.6 pg (27.0-33.0); Mean Corpuscular Volume 88.1 fL (80.0-98.0); Mean Platelet Volume 9.4 fL (9.4-12.3); Monocytes Absolute Auto 0.8 X10*3/uL (0.1-1.2); Monocytes Percent Auto 8.9 % (2-11); Neutrophils Absolute Auto 5.9 x10*3/uL (2.0-8.3); Neutrophils Percent Auto 69.4 % (45-73); Platelet Count 216 X10*3/uL (160-400); Red Blood Count 4.62 X10*6/uL (4.20-5.50); White Blood Count 8.5 X10*3/uL (4.8-10.8)
== END 2023-07-31 11:52 | disposition home or self-care (01) ==
LOC: HO.LAB 11:51
PROVIDERS: PCP Internal Medicine; Visit Provider Internal Medicine
DX: Z01.818 Encounter for other preprocedural examination (principal); D64.9 Anemia, unspecified
CPT/HCPCS: 36415; 85025; 93005

== ENCOUNTER → 2023-07-31 12:03 | Outpatient (BNV) | payer MEDICARE, MEDICAID, SELFPAY | PROVIDERS: PCP Internal Medicine; Visit Provider Internal Medicine Cardiovascular Disease | DX: Z01.818 Encounter for other preprocedural examination (principal); M79.675 Pain in left toe(s) | CPT/HCPCS: 93010 ==

== ENCOUNTER 2023-08-07 12:59 | Outpatient (AMB) | payer MEDICARE, MEDICAID, SELFPAY ==
--- NOTE | 2023-08-07 13:00 | A.OFFVIS_ITS ---
Intake Vital Signs 08/07/23 13:06 BP 126/84 Blood Pressure Location Lt radial Position Sitting Pulse 75 Pulse Source Pulse Oximeter Pulse Oximetry (%) 96 Oxygen Delivery Method Room Air Intake Visit Reasons: mat visit Intake Note: the patient presents for a mat visit Mail Machine Operator Required: No Allergies No Known Allergies [No Known Allergies*] Allergy (Verified 08/07/23 13:07) Do you need a note to return to daycare/school/sports/work: No HPI mat visit HPI Details Patient presents for treatment and follow up She is continuing to settle into her new house, has done some decorating for [employer] Reports she is having bunion surgery performed on her foot 08/15 at [facility] Was told by her provider to stop suboxone 48 hrs prior to surgery- counseled by t/w that she can continue her MAT through surgery, pt relieved by this as she was worrying about experiencing withdrawals. She denies any other concerns today, no concerns related to recovery. [facility] Medical History Tobacco use disorder Fentanyl use disorder, moderate Opioid use disorder Disc degeneration, lumbar Right lumbar radiculopathy Surgical History History of foot surgery History of carpal tunnel surgery of left wrist H/O section Cervical post-laminectomy syndrome Family History Father Stroke Mother Ovarian cancer Brother No problems noted. Son No problems noted. Son No problems noted. 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 Cognitive needs: No Hearing needs: No Vision needs: No Review of Systems Const Reports as per HPI Physical Exam Vital Signs: Last Vital Signs Pulse 75 08/07/23 13:06 BP 126/84 08/07/23 13:06 Pulse Ox 96 08/07/23 13:06 Oxygen Delivery Method Room Air 08/07/23 13:06 Const General: cooperative, comfortable and no acute distress Resp Effort & Inspection: normal respiratory effort Skin General skin exam: no rashes or lesions noted Psych Appearance: grossly normal and well kempt Mental Status: mental status grossly normal Speech and movement: Normal speech and movement present Affect: normal affect Attitude: cooperative Insight: Good insight present (Psych) Assessment & Plan Assessment & Plan (1) Opioid use disorder: Code(s): F11.99 - Opioid use, unspecified with unspecified opioid-induced disorder Plan: Continue suboxone at current dose Continue taking suboxone as prescribed leading up to and through receiving surgery Encouraged to call [facility] with any questions Follow up 8 weeks Medications: Refilled buprenorphine-naloxone 8-2 mg (Suboxone) 1 film sublingual TID 30 days 90 ea 1RF Coding Level of Care Code Est Pt Level 3 (33917) Diagnoses Opioid use disorder F11.99
[2023-08-07 13:06] VITALS: BP 126/84; PULSE 75; O2SAT 96
== END 2023-08-07 13:54 | disposition home or self-care (01) ==
PROVIDERS: PCP Internal Medicine; Visit Provider Nurse Practitioner Family
DX: F11.99 Opioid use, unspecified with unspecified opioid-induced disorder (principal)
CPT/HCPCS: 99213

== ENCOUNTER → 2023-08-07 12:59 | Outpatient (BNVA) | payer MEDICARE, MEDICAID, SELFPAY | PROVIDERS: PCP Internal Medicine; Visit Provider Nurse Practitioner Family | DX: F11.20 Opioid dependence, uncomplicated (principal) | CPT/HCPCS: 99212 ==

== ENCOUNTER 2023-10-02 12:57 | Outpatient (AMB) | payer MEDICARE, MEDICAID, SELFPAY ==
[2023-10-02 13:17] VITALS: BP 140/60; PULSE 71; RESP 19; O2SAT 99
--- NOTE | 2023-10-02 13:17 | A.OFFVISCC_ITS ---
Intake Vital Signs 10/02/23 13:17 BP 140/60 H Blood Pressure Location Lt brachial Position Sitting Respiration 19 Pulse 71 Pulse Source Pulse Oximeter Pulse Oximetry (%) 99 Oxygen Delivery Method Room Air Intake Visit Reasons: mat visit Allergies No Known Allergies [No Known Allergies*] Allergy (Verified 08/07/23 13:07) HPI mat visit HPI Details Pt presents today for MAt follow up She reports she is experiencing multiple stressors, her has stage 4 cancer she has been managing his care and has been experiencing insurance challenges She admits she over took her suboxone a few of the days last month. She feels as though her dose is adequate and does not want a dose change, she feels as though she was overtaking as a reaction to the increased stress She reports her bunion surgery was successful and that she is still healing She denies concerns with side effects [facility] Medical History Tobacco use disorder Fentanyl use disorder, moderate Opioid use disorder Disc degeneration, lumbar Right lumbar radiculopathy Surgical History History of foot surgery History of carpal tunnel surgery of left wrist H/O section Cervical post-laminectomy syndrome Family History Father Stroke Mother Ovarian cancer Brother No problems noted. Son No problems noted. Son No problems noted. 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 Cognitive needs: No Hearing needs: No Vision needs: No Review of Systems Const Reports as per HPI Physical Exam Vital Signs: Last Vital Signs Pulse 71 10/02/23 13:17 Resp 19 10/02/23 13:17 BP 140/60 H 10/02/23 13:17 Pulse Ox 99 10/02/23 13:17 Oxygen Delivery Method Room Air 10/02/23 13:17 Const General: cooperative and no acute distress Resp Effort & Inspection: normal respiratory effort and able to speak in complete sentences Psych Appearance: grossly normal Mental Status: mental status grossly normal Speech and movement: Normal speech and movement present Affect: Sad affect present Attitude: cooperative Thought process: Normal thought process present Thought content: Normal thought content present Assessment & Plan Assessment & Plan (1) Opioid use disorder: Code(s): F11.99 - Opioid use, unspecified with unspecified opioid-induced disorder Plan -Mass pat reviewed -Cont suboxone same dose - Reviewed with patient to take her dose as prescribed, if she feels as though her dose is inadequate to call the office -Follow up 8 weeks Medications: Refilled buprenorphine-naloxone 8-2 mg (Suboxone) 1 film sublingual TID 30 days 90 ea 1RF buprenorphine-naloxone 8-2 mg (Suboxone) 1 film sublingual TID 30 days 90 ea 1RF Coding Level of Care Code Est Pt Level 3 (80218) Diagnoses Opioid use disorder F11.99
== END 2023-10-02 13:41 | disposition home or self-care (01) ==
PROVIDERS: PCP Internal Medicine; Visit Provider Nurse Practitioner Family
DX: F11.99 Opioid use, unspecified with unspecified opioid-induced disorder (principal)
CPT/HCPCS: 99213

== ENCOUNTER → 2023-10-02 12:57 | Outpatient (BNVA) | payer MEDICARE, MEDICAID, SELFPAY | PROVIDERS: PCP Internal Medicine; Visit Provider Nurse Practitioner Family | DX: F11.20 Opioid dependence, uncomplicated (principal) | CPT/HCPCS: 99212 ==

== ENCOUNTER 2023-11-27 12:58 | Outpatient (AMB) | payer OTHER, SELFPAY ==
--- NOTE | 2023-11-27 13:03 | MHC.AM.SUB ---
Intake Vital Signs 11/27/23 13:09 BP 140/84 H Blood Pressure Location Lt radial Position Sitting Pulse 54 Pulse Source Pulse Oximeter Pulse Oximetry (%) 99 Oxygen Delivery Method Room Air Intake Visit Reasons: mat visit Intake Note: The patient presents for a mat visit Director Of Analytics Required: No Allergies No Known Allergies [No Known Allergies*] Allergy (Verified 11/27/23 13:03) Do you need a note to return to daycare/school/sports/work: No HPI mat visit HPI Details Patient presents for MAT visit Reports her is doing better than he was when she had her previous visit She has been tolerating suboxone 8mg tid, has continued to overtake by 4mg here and there when her pain has been bad T/w tried to encourage her to consider a dose change if she feels her dose has been inadequate, she declines at this time Has no other concerns at this time [facility] Medical History Tobacco use disorder Fentanyl use disorder, moderate Opioid use disorder Disc degeneration, lumbar Right lumbar radiculopathy Surgical History History of foot surgery History of carpal tunnel surgery of left wrist H/O section Cervical post-laminectomy syndrome Family History Father Stroke Mother Ovarian cancer Brother No problems noted. Son No problems noted. Son No problems noted. 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 Cognitive needs: No Hearing needs: No Vision needs: No Review of Systems Const Reports as per HPI Physical Exam Vital Signs: Last Vital Signs Pulse 54 11/27/23 13:09 BP 140/84 H 11/27/23 13:09 Pulse Ox 99 11/27/23 13:09 Oxygen Delivery Method Room Air 11/27/23 13:09 Const General: cooperative Resp Effort & Inspection: normal respiratory effort Psych Appearance: grossly normal Mental Status: mental status grossly normal Speech and movement: Normal speech and movement present Affect: normal affect Attitude: cooperative Thought process: Normal thought process present Thought content: Normal thought content present Assessment & Plan Assessment & Plan (1) Opioid use disorder: Code(s): F11.99 - Opioid use, unspecified with unspecified opioid-induced disorder Plan: -Mass pat reviewed -Continue suboxone same dose -Follow up 8 weeks, sooner if necessary Medications: Refilled buprenorphine-naloxone 8-2 mg (Suboxone) 1 film sublingual TID 90 ea 1RF 30 days Coding Level of Care Code Est Pt Level 3 (89493) Diagnoses Opioid use disorder F11.99
[2023-11-27 13:09] VITALS: BP 140/84; PULSE 54; O2SAT 99
== END 2023-11-27 13:46 | disposition home or self-care (01) ==
PROVIDERS: PCP Internal Medicine; Visit Provider Nurse Practitioner Family
DX: F11.99 Opioid use, unspecified with unspecified opioid-induced disorder (principal)
CPT/HCPCS: 99213

== ENCOUNTER → 2023-11-27 12:58 | Outpatient (BNVA) | payer OTHER, SELFPAY | PROVIDERS: PCP Internal Medicine; Visit Provider Nurse Practitioner Family | DX: F11.20 Opioid dependence, uncomplicated (principal) | CPT/HCPCS: 99212 ==

== ENCOUNTER 2024-01-22 12:49 | Outpatient (AMB) | payer OTHER, SELFPAY ==
[2024-01-22 12:55] VITALS: BP 142/90; PULSE 94; O2SAT 96
--- NOTE | 2024-01-22 12:55 | MHC.AM.SUB ---
Vital Signs 01/22/24 12:55 BP 142/90 H Blood Pressure Location Rt brachial Position Sitting Pulse 94 Pulse Source Pulse Oximeter Pulse Oximetry (%) 96 Oxygen Delivery Method Room Air Intake Visit Reasons: mat visit Allergies No Known Allergies [No Known Allergies*] Allergy (Verified 11/27/23 13:03) HPI HPI mat visit: Details: Patient presents for MAT visit States she is having foot surgery on 02/[address] [facility] Reports some interpersonal issues between her son and girlfriend that reside with her that has been causing her distress She has been taking suboxone 8mg TID and is tolerating well, she denies concerns regarding dose or side effects at this time HPI Comments Details: Patient presents for MAT visit [facility] Medical History Tobacco use disorder Fentanyl use disorder, moderate Opioid use disorder Disc degeneration, lumbar Right lumbar radiculopathy Surgical History History of foot surgery History of carpal tunnel surgery of left wrist H/O section Cervical post-laminectomy syndrome Family History Father Stroke Mother Ovarian cancer Brother No problems noted. Son No problems noted. Son No problems noted. 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 Cognitive needs: No Hearing needs: No Vision needs: No Review of Systems Const Reports as per HPI Physical Exam Vital Signs: Last Vital Signs Pulse 94 01/22/24 12:55 BP 142/90 H 01/22/24 12:55 Pulse Ox 96 01/22/24 12:55 Oxygen Delivery Method Room Air 01/22/24 12:55 Const General: cooperative and no acute distress Resp Effort & Inspection: normal respiratory effort and able to speak in complete sentences Psych Appearance: grossly normal Mental Status: mental status grossly normal Speech and movement: Normal speech and movement present Affect: normal affect Attitude: cooperative Thought process: Normal thought process present Assessment & Plan Assessment & Plan (1) Opioid use disorder: Code(s): F11.99 - Opioid use, unspecified with unspecified opioid-induced disorder Category: Medical Plan: -Instructed her to continue her suboxone as prescribed right up until and after surgery, educated her that she may require higher doses of pain medication to address her pain post surgery. Reviewed with her to call the clinic if she has any questions or concerns. -Mass pat reviewed -Suboxone rx sent to pharmacy -Follow up 8 weeks Medications: Refilled buprenorphine-naloxone 8-2 mg (Suboxone) 1 film sublingual TID 90 ea 1RF 30 days
== END 2024-01-22 13:38 | disposition home or self-care (01) ==
PROVIDERS: PCP Internal Medicine; Visit Provider Nurse Practitioner Family
DX: F11.99 Opioid use, unspecified with unspecified opioid-induced disorder (principal)
CPT/HCPCS: 99213

== ENCOUNTER → 2024-01-22 12:49 | Outpatient (BNVA) | payer OTHER, SELFPAY | PROVIDERS: PCP Internal Medicine; Visit Provider Nurse Practitioner Family | DX: F11.20 Opioid dependence, uncomplicated (principal); Z51.81 Encounter for therapeutic drug level monitoring; Z79.899 Other long term (current) drug therapy | CPT/HCPCS: 99212 ==

== ENCOUNTER 2024-02-17 10:50 | Outpatient (REF) | payer OTHER, SELFPAY ==
--- NOTE | ~2024-02-17 | XR_ITS ---
EXAMINATION: XR SHOULDER, RIGHT CLINICAL INFORMATION: Pain in unspecified shoulder. COMPARISON: None available. TECHNIQUE: AP external rotation, Grashey, scapular Y, and axillary views of the right shoulder. FINDINGS: The bones are diffusely demineralized. Mild arthritic changes in the acromioclavicular joint. Dextroscoliosis with degenerative changes in the imaged upper thoracic spine. Mild degenerative changes in the glenohumeral joint. No abnormal soft tissue calcifications appreciated adjacent to the humeral head. XR/XR shoulder RT min 2V IMPRESSION: 1. Mild degenerative changes in the acromioclavicular and glenohumeral joints. 2. Dextroscoliosis with degenerative changes in the imaged upper thoracic spine.
== END 2024-02-17 10:51 | disposition home or self-care (01) ==
LOC: HO.XRAY 10:50
PROVIDERS: PCP Internal Medicine; Visit Provider Internal Medicine
DX: M25.511 Pain in right shoulder (principal)
CPT/HCPCS: 73030

== ENCOUNTER 2024-03-18 12:59 | Outpatient (AMB) | payer OTHER, SELFPAY ==
--- NOTE | 2024-03-18 13:15 | MHC.AM.SUB ---
Intake Visit Reasons: mat visit Allergies No Known Allergies [No Known Allergies*] Allergy (Verified 11/27/23 13:03) HPI HPI mat visit: Details: Patient presents for follow up Currently prescribed suboxone 8mg TID No issues related to medication concerned regarding her husbands health--has to see oncologist on Friday [facility] Medical History (Updated 03/18/24 @ 13:34 by Aure Aparicio CNP) Tobacco use disorder Fentanyl use disorder, moderate Opioid use disorder Disc degeneration, lumbar Right lumbar radiculopathy Surgical History History of foot surgery History of carpal tunnel surgery of left wrist H/O section Cervical post-laminectomy syndrome Family History Father Stroke Mother Ovarian cancer Brother No problems noted. Son No problems noted. Son No problems noted. 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 Cognitive needs: No Hearing needs: No Vision needs: No Review of Systems Const Reports as per HPI and Reports no additional complaints Physical Exam Const General: cooperative and no acute distress Psych Appearance: grossly normal Mental Status: mental status grossly normal Speech and movement: Normal speech and movement present Affect: normal affect Attitude: cooperative Thought process: Normal thought process present Assessment & Plan Assessment & Plan (1) Opioid use disorder, moderate, in sustained remission: Code(s): F11.21 - Opioid dependence, in remission Category: Medical Plan: continue suboxone at current dose ] follow up 3 months Medications: Refilled buprenorphine-naloxone 8-2 mg (Suboxone) 1 film sublingual TID 30 days 90 ea 2RF
== END 2024-03-18 14:24 | disposition home or self-care (01) ==
PROVIDERS: PCP Internal Medicine; Visit Provider Nurse Practitioner Psychiatric/Mental Health
DX: F11.21 Opioid dependence, in remission (principal)
CPT/HCPCS: 99213

== ENCOUNTER → 2024-03-18 12:59 | Outpatient (BNVA) | payer OTHER, SELFPAY | PROVIDERS: PCP Internal Medicine; Visit Provider Nurse Practitioner Psychiatric/Mental Health | DX: F11.21 Opioid dependence, in remission (principal) | CPT/HCPCS: 99212 ==

== ENCOUNTER 2024-03-25 09:58 | Outpatient (AMB) | payer OTHER, SELFPAY ==
--- NOTE | 2024-03-25 10:16 | MHC.OFFVIS ---
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 no hx of injury. Patient reports ongoing pain for a couple months. She expresses that her pain is worse when doing/brushing her hair. Patient hasn't taken any medication to help with the pain. Pain is on the anterior aspect of the shoulder and sometimes it radiates down to her arm. 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 She claims that the pain has persisted for a couple of months. She denies any history of injury. She says that when she does or brushes her hair, her pain gets worse. She denies taking any medicine to ease her discomfort. She has been experiencing pain on the anterior aspect of her shoulder, which occasionally radiates down into her arm. She reports that she has limited range of motion. She reports that she feels numbness and tingling in her shoulder. She claims that she has difficulty raising her right arm as compared to her left arm. She denies any treatment in the past. [facility] Medical History (Updated 03/25/24 @ 10:42 by Casey Hunt PA-C) Tobacco use disorder Fentanyl use disorder, moderate Opioid use disorder Disc degeneration, lumbar Right lumbar radiculopathy Surgical History History of foot surgery History of carpal tunnel surgery of left wrist H/O section Cervical post-laminectomy syndrome Family History Father Stroke Mother Ovarian cancer Brother No problems noted. Son No problems noted. Son No problems noted. 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 Cognitive needs: No Hearing needs: No Vision needs: No Review of Systems Const All systems reviewed & are unremarkable except as noted in HPI and below Physical Exam Vital Signs: BMI result Body Mass Index 24.2 Const General: cooperative, healthy appearing, comfortable and no acute distress Orientation/consciousness: patient oriented x3 Neck Neck: Yes normal visual inspection and Yes no JVD Chest Chest palpation & inspection: normal inspection of the chest Resp Effort & Inspection: normal respiratory effort Auscultation: clear to auscultation bilaterally, crackles (no), rales (no), rhonchi (no) and wheezes (no) Cardio Jugular venous distension: no JVD Rate: regular rate Rhythm: regular rhythm Heart sounds: S1 normal heart sound present, S2 normal heart sound present, Murmur heart sound present (no) and Rub heart sound present (no) Peripheral pulses: Peripheral pulses 2+ throughout Neuro General: patient oriented x3 Extrem Other: Right shoulder: Normal to inspection. Tenderness over the bicipital groove and along the deltoid region of the shoulder. Forward flexion to 175, external rotation to 90, internal rotation to S1. 5/5 RTC strength. Positive Decker and cross body abduction. NVI. General: Yes normal to inspection, Yes no pedal edema and Yes no calf tenderness Psych Appearance: grossly normal Mental Status: mental status grossly normal Speech and movement: Normal speech and movement present Office Procedures Joint Injection/Drain Joint Injection/Drain Primary Site: right shoulder Prep: site was prepped using aseptic technique, ethochloride spray was applied and injection warnings given Injected: 80 mg of, DepoMedrol, with 8 mL of, 1% plain lidocaine and in the subcromial space Approach Used: posterolateral Procedure: The patient tolerated the procedure well and there was some relief with the local anesthesia Coding 36911 - Glenohumeral/Tronchanteric Bursa/Intraarticular Procedure code (CPT) selection complete Results Reviewed Results Reviewed: xrays of the right shoulder obtained on 02/17/24 show ac joint of, well preserved gh joint Assessment & Plan Assessment & Plan (1) Right shoulder tendinitis: Code(s): M77.8 - Other enthesopathies, not elsewhere classified Category: Medical (2) Osteoarthritis of acromioclavicular joint: Code(s): M19.019 - Primary osteoarthritis, unspecified shoulder Category: Medical Plan We discussed options today, which include steroid injection. The patient did consent to move forward with the right shoulder injection, which was tolerated well. I recommended rest, ice, and elevation and OTC anti-inflammatories as needed for discomfort. If symptoms persist over the next 6-8 weeks, they will contact the office, otherwise as needed. I will give her handout about some home exercises. Patient Instructions: Scribed for Casey Hunt PA-C, by Esteban Velez medical physiologist, on 03/25/2024 at 10:00 AM EST. I, Casey Hunt PA-C, have personally reviewed and agree with the information entered by the scribe. Coding Level of Care Code New Pt Level 3 (71825) Diagnoses Right shoulder tendinitis M77.8 Osteoarthritis of acromioclavicular joint M19.019 CPT Codes Coding - Joint 7: 81198 - Glenohumeral/Tronchanteric Bursa/Intraarticular ([id number])
[2024-03-25 10:19] VITALS: BMI 24.2
== END 2024-03-25 10:58 | disposition home or self-care (01) ==
PROVIDERS: PCP Internal Medicine; Visit Provider Physician Assistant
DX: M19.011 Primary osteoarthritis, right shoulder (principal); M77.8 Other enthesopathies, not elsewhere classified
CPT/HCPCS: 20610; 99203

== ENCOUNTER → 2024-03-25 09:58 | Outpatient (BNVA) | payer OTHER, SELFPAY | PROVIDERS: PCP Internal Medicine; Visit Provider Physician Assistant | DX: M77.8 Other enthesopathies, not elsewhere classified (principal); M19.019 Primary osteoarthritis, unspecified shoulder | CPT/HCPCS: 20610; 99202; J1010 ==

== ENCOUNTER 2024-06-09 11:08 | Outpatient (AMB) | payer OTHER, SELFPAY ==
--- NOTE | 2024-06-09 13:25 | A.OFFVISCC_ITS ---
Intake Visit Reasons: mat visit Allergies No Known Allergies [No Known Allergies*] Allergy (Verified 03/25/24 10:18) HPI HPI mat visit: Details: Patient presents for follow up tearful during visit is not doing well no issues related to recovery has a strong support system [facility] Medical History (Updated 06/09/24 @ 13:27 by Aure Aparicio CNP) Tobacco use disorder Fentanyl use disorder, moderate Opioid use disorder Disc degeneration, lumbar Right lumbar radiculopathy Surgical History History of foot surgery History of carpal tunnel surgery of left wrist H/O section Cervical post-laminectomy syndrome Family History Father Stroke Mother Ovarian cancer Brother No problems noted. Son No problems noted. Son No problems noted. 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 Cognitive needs: No Hearing needs: No Vision needs: No Review of Systems Const Reports as per HPI Physical Exam Const General: cooperative, healthy appearing, comfortable and no acute distress Orientation/consciousness: patient oriented x3 Neck Neck: Yes normal visual inspection and Yes no JVD Chest Chest palpation & inspection: normal inspection of the chest Resp Effort & Inspection: normal respiratory effort Auscultation: clear to auscultation bilaterally, crackles (no), rales (no), rhonchi (no) and wheezes (no) Cardio Jugular venous distension: no JVD Rate: regular rate Rhythm: regular rhythm Heart sounds: S1 normal heart sound present, S2 normal heart sound present, Murmur heart sound present (no) and Rub heart sound present (no) Peripheral pulses: Peripheral pulses 2+ throughout Neuro General: patient oriented x3 Extrem Other: Right shoulder: Normal to inspection. Tenderness over the bicipital groove and along the deltoid region of the shoulder. Forward flexion to 175, external rotation to 90, internal rotation to S1. 5/5 RTC strength. Positive Decker and cross body abduction. NVI. General: Yes normal to inspection, Yes no pedal edema and Yes no calf tenderness Psych Appearance: grossly normal Mental Status: mental status grossly normal Speech and movement: Normal speech and movement present Affect: normal affect Attitude: cooperative Thought process: Normal thought process present Assessment & Plan Assessment & Plan (1) Opioid use disorder, moderate, in sustained remission: Code(s): F11.21 - Opioid dependence, in remission Category: Medical Plan: * continue suboxone at current dose * follow up 3 months Orders: Orders Comprehensive Met. 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
== END 2024-06-09 14:25 | disposition home or self-care (01) ==
PROVIDERS: PCP Internal Medicine; Visit Provider Nurse Practitioner Psychiatric/Mental Health
DX: F11.21 Opioid dependence, in remission (principal)
CPT/HCPCS: 99213

== ENCOUNTER → 2024-06-09 11:08 | Outpatient (BNVA) | payer OTHER, SELFPAY | PROVIDERS: PCP Internal Medicine; Visit Provider Nurse Practitioner Psychiatric/Mental Health | DX: F11.21 Opioid dependence, in remission (principal); Z51.81 Encounter for therapeutic drug level monitoring; Z79.899 Other long term (current) drug therapy | CPT/HCPCS: 99212 ==

== ENCOUNTER 2024-06-25 09:29 | Emergency (ER) | payer OTHER, SELFPAY ==
--- NOTE | ~2024-06-25 | XR_ITS ---
EXAMINATION: XR CHEST CLINICAL INFORMATION: Shortness of breath. Chest pain. COMPARISON: None available. TECHNIQUE: 2 views of the chest were obtained. FINDINGS: No consolidation, pleural effusion or pneumothorax. Cardiomediastinal silhouette is normal in size. S-shaped curvature of the thoracic spine. Vascular clips overlapping the midline of the lower neck. XR/XR chest 2V IMPRESSION: No acute airspace disease. Scoliosis, thoracic spine. Electronically signed by: Eduardo Oneal MD 06/25/2024 10:40 AM EDT
--- NOTE | 2024-06-25 09:33 | ECG_ITS ---
Test Reason : CHEST PAIN Blood Pressure : / mmHG Vent. Rate : 060 BPM Atrial Rate : 060 BPM P-R Int : 156 ms QRS Dur : 094 ms QT Int : 428 ms P-R-T Axes : 002 007 095 degrees QTc Int : 428 ms Normal sinus rhythm Nonspecific T wave changes Abnormal ECG When compared with ECG of 31-JUL-2023 12:01, Non-specific change in ST segment in Anterior leads Referred By: Generic ED Physician Electronically Signed By:Albin Conrad
[2024-06-25 09:39] VITALS: BP 188/99; PULSE 56; RESP 24; TEMP 36.6; O2SAT 100; BMI 24.3
[2024-06-25 09:58] LABS: MANUAL DIFF FLAG NO
[2024-06-25 10:01] LABS: Basophils Absolute Auto 0.1 X10*3/uL (0.0-0.2); Basophils Percent Auto 1.2 % (0-2); Eosinophils Absolute Auto 0.3 X10*3/uL (0.0-0.4); Eosinophils Percent Auto 3.9 % (0-4); Hematocrit 42.6 % (37.0-47.0); Hemoglobin 14.3 g/dl (12.0-16.0); Imm Gran Abs Auto 0.01 X10*3/uL (0.00-0.03); Imm Gran Pct Auto 0.1 % (0.0-0.4); Lymphocytes Absolute Auto 3.2 X10*3/uL (1.2-4.9); Lymphocytes Percent Auto 38.2 % (20-40); Mean Corpuscular HGB Conc 33.6 g/dl (31.0-35.0); Mean Corpuscular Hemoglobin 29.6 pg (27.0-33.0); Mean Corpuscular Volume 88.2 fL (80.0-98.0); Mean Platelet Volume 9.8 fL (9.4-12.3); Monocytes Absolute Auto 0.7 X10*3/uL (0.1-1.2); Monocytes Percent Auto 8.9 % (2-11); Neutrophils Percent Auto 47.7 % (45-73); Platelet Count 226 X10*3/uL (160-400); Red Blood Count 4.83 X10*6/uL (4.20-5.50); Red Cell Distribution Width 14.7 % (11.0-16.0); White Blood Count 8.4 X10*3/uL (4.8-10.8)
[2024-06-25 10:16] LABS: Alanine Aminotransferase 7 U/L (0-31); Albumin Level 4.1 g/dL (3.5-5.0); Alkaline Phosphatase 115 U/L (39-117); Anion Gap 13 (12-20); Aspartate Amino Transferase 22 U/L (5-31); Bilirubin Total 0.4 mg/dL (0.0-1.0); Blood Urea Nitrogen 8 mg/dL (9-16); Calcium 9.8 mg/dL (8.4-10.2); Carbon Dioxide 26 mmol/L (22-29); Chloride 104 mmol/L (96-108); Creatinine Clr Calc Pharmacy 55.8; Estimated Glomerular Filt Rate > 60; Glucose Random 121 mg/dL (60-115); Sodium 139 mmol/L (135-145); Total Protein 7.6 g/dL (6.5-8.0)
[2024-06-25 10:24] LABS: Troponin-I High Sensitivity 2.9 ng/L (<3.5-17.0)
[2024-06-25 10:36] LABS: Influenza A PCR NEGATIVE (Negative); Influenza B PCR NEGATIVE (Negative); Resp Syncy Virus RNA Qual PCR NEGATIVE (Negative); SARS COV2 PCR INHOUSE NEGATIVE (Negative)
--- NOTE | 2024-06-25 11:11 | ED_ITS ---
HPI - General Adult General Chief complaint: Dyspnea Stated complaint: sob Time Seen by Provider: 06/25/24 11:04 Source: patient Mode of arrival: ambulatory Limitations: no limitations History of Present Illness ED Provider: Margarette Palmer PA-C HPI narrative: Patient is a 63 year old assigned female at with a history of tobacco use and OUD presenting to the emergency department today with chest pain and SOB. Patient states that she woke up with chest pressure and shortness of breath. Patient states that as time has gone on, her symptoms have resolved. Patient denies any current dizziness, lightheadedness, abdominal pain, nausea, vomiting, fever, chills, blurry vision, double vision, loss of vision, chest pain, difficulty breathing, shortness of breath, back pain, night sweats, pain with urination, increased urinary frequency, increased urinary urgency, blood in her urine or stool, syncope or a near syncopal episode, recent trauma or falls, bowel incontinence, bladder incontinence, or any other complaints at this time. Relieving factors: none Exacerbating factors: none Associated symptoms: chest pain (now resolved) and shortness of breath (now resolved) Treatments prior to arrival: none Related Data Home Medications ?Medication ?Instructions ?Recorded ?Confirmed meloxicam 15 mg tablet 15 mg PO DAILY 03/25/24 03/25/24 Previous Rx's ?Medication ?Instructions ?Recorded clotrimazole-betamethasone 1 1 appl topical BID 2 weeks #45 01/28/24 %-0.05 % topical cream grams buprenorphine 8 mg-naloxone 2 mg 1 film sublingual TID 30 days #90 06/09/24 sublingual film (Suboxone) ea Allergies Allergy/AdvReac Type Severity Reaction Status Date / Time No Known Allergies Allergy Verified 06/25/24 09:41 [No Known Allergies*] Review of Systems 2 Constitutional: Constitutional: Reports no additional constitutional complaints, Denies chills, Denies fever(s) and Denies night sweats Eyes: Eyes: Reports no additional eye complaints, Denies blurry vision, Denies change in vision, Denies diplopia, Denies eye discharge, Denies loss of vision and Denies eye pain ENT: Denies dizziness Cardiovascular: Cardiovascular: Reports no additional cardiovascular complaints, Reports chest pain (now resolved), Denies lightheadedness, Denies Loss of Consciousness and Reports dyspnea (now resolved) Respiratory: Respiratory: Reports no additional respiratory complaints and Reports dyspnea (now resolved) Gastrointestinal: Gastrointestinal: Reports no additional gastrointestinal complaints, Denies abdominal pain, Denies melena, Denies hematochezia, Denies change in bowel habits and Denies change in stool character Genitourinary: Genitourinary: Denies hematuria, Denies urinary frequency, Denies dysuria, Denies urinary incontinence, Denies urinary hesitancy and Denies urinary urgency Musculoskeletal: Musculoskeletal: Reports no additional musculoskeletal complaints, Denies numbness and Denies tingling Neurologic: Denies dizziness, Denies loss of vision, Denies numbness and Denies tingling Psychiatric: Psychiatric: Reports no additional psychiatric complaints Endocrine: Endocrine: Reports no additional endocrine complaints Hematologic/Lymphatic: Hematologic/Lymphatic: Reports no additional hematologic/lymphatic complaints Allergic/Immunologic: Allergic/Immunologic: Reports no additional allergic/immunologic complaints PMF Past Medical History Attestation statement: The following information was validated with the patient. Source: old records reviewed and nursing notes reviewed Medical History Tobacco use disorder Fentanyl use disorder, moderate Opioid use disorder Disc degeneration, lumbar Right lumbar radiculopathy Surgical History History of foot surgery History of carpal tunnel surgery of left wrist H/O section Cervical post-laminectomy syndrome Family History Family History Father Stroke Mother Ovarian cancer Brother No problems noted. Son No problems noted. Son No problems noted. Social History Social History Household Members: Spouse and Children Household Members Other:: lives with 28 yo son and Housing: Apartment Alcohol intake: former Patient Tobacco Use Status: Current everyday Tobacco user Tobacco use type: Cigarette Cigarette Packs Per Day: 0.5 Cigarettes Per Day: 10 Years Smoked: 1/2 PPD since age 19 Smoked in Last 30 Days: Yes e-Cigarette/Vaping Use: Never Used Second Hand Smoke Exposure: No Use of substances other than those prescribed or required for medical reasons: Yes Substance Use Type: Marijuana Substance Use Frequency: Chronic Longstanding Advance Directives: No Advance Directives Information Provided: Yes service: No Current occupational status: unemployed 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 Cognitive needs: No Hearing needs: No Vision needs: No Physical Exam ED Vital Signs: Vital Signs - 24 hr 06/25/24 09:39 06/25/24 12:29 Temperature 97.9 F 97.9 F Pulse Rate 56 56 Respiratory Rate 24 H 18 Blood Pressure 188/99 H 188/99 H Pulse Oximetry 100 98 Oxygen Delivery Method Room Air Room Air BMI result Body Mass Index 24.3 Const General: cooperative, no acute distress, alert and awake Nutritional Appearance: well nourished Orientation/consciousness: patient oriented x3 Limitations: no limitations HENMT Head: Yes normal to inspection and Yes atraumatic Ears: hearing grossly normal bilaterally and external ears normal General nose exam: Normal external nose present, no nasal discharge noted and no epistaxis Face and sinus: Yes normal facial exam, No abrasion and No laceration Mouth: Normal oral and palatal mucosa present, no drooling and no muffled voice Eyes General: appearance normal, both eyes and all related structures Periorbital: periorbital findings normal Eyelids: Yes eyelids normal Conjunctivae: conjunctivae normal Pupils: Equal, round and reactive pupils present EOM: EOMs intact bilaterally Neck Neck: Yes normal visual inspection, Yes full ROM and Yes no lymphadenopathy Chest Chest palpation & inspection: normal inspection of the chest Resp Effort & Inspection: normal respiratory effort and able to speak in complete sentences GI Inspection: Yes normal to inspection Neuro General: patient oriented x3 and moves all extremities Cranial nerves: Yes Equal, round and reactive pupils present Cognition (Neuro): normal cognition Extrem General: Yes normal to inspection, Yes full ROM and Yes capillary refill normal Psych Appearance: grossly normal Mental Status: mental status grossly normal Affect: normal affect Attitude: cooperative Thought process: Normal thought process present Thought content: Normal thought content present Insight: Good insight present (Psych) Medical Decision Making Medical Decision Making MDM Narrative: Patient is a 63 year old assigned female at with a history of tobacco use and OUD presenting to the emergency department today with now resolved chest pain and shortness of breath. Patient's physical exam was unremarkable. Patient's blood work was unremarkable. Patient's EKG was unremarkable. Patient's chest x-ray showed no acute process. I explained my physical exam findings as well as all test results to the patient. I answered all questions asked by the patient. I stressed the importance of the patient taking her medication as directed (either prescribed or as the over the counter packaging recommends). I stressed the importance of the patient following up with her primary care provider. I stressed the importance of the patient returning to the emergency department immediately if her symptoms were to worsen or if she were to develop any dizziness, shortness of breath, difficulty breathing, chest pain, blurry vision, loss of vision, nausea, vomiting, abdominal pain, fever, chills, back pain, or any other complaints. Patient verbalized agreement and understanding with this treatment plan and discharge. Differential Diagnosis Differential Diagnoses: The differential diagnosis associated with the presentation includes NSTEMI STEMI Chest pain SOB COVID-19 Influenza RSV PNA Admission/Observation Consideration of admission/observation: Escalation of care including admission/observation considered Patient would have been admitted to the hospital had her work up had any findings where hospital admission was appropriate and her clinical presentation warranted hospital admission. Lab Data [facility] Lab Attestation statement: I reviewed the patient's lab results. My interpretation of these results are in the [facility] Rationale portion of this note. 06/25/24 09:51 06/25/24 09:51 Labs: Lab Results 06/25/24 Range/Units 09:51 WBC 8.4 (4.8-10.8) X10*3/uL RBC 4.83 (4.20-5.50) X10*6/uL Hgb 14.3 (12.0-16.0) g/dl Hct 42.6 (37.0-47.0) % MCV 88.2 (80.0-98.0) fL MCH 29.6 (27.0-33.0) pg MCHC 33.6 (31.0-35.0) g/dl RDW 14.7 (11.0-16.0) % Plt Count 226 (160-400) X10*3/uL MPV 9.8 (9.4-12.3) fL Immature Gran % (Auto) 0.1 (0.0-0.4) % Neut % (Auto) 47.7 (45-73) % Lymph % (Auto) 38.2 (20-40) % [place] % (Auto) 8.9 (2-11) % Eos % (Auto) 3.9 (0-4) % Baso % (Auto) 1.2 (0-2) % Lymph # (Auto) 3.2 (1.2-4.9) X10*3/uL [place] # (Auto) 0.7 (0.1-1.2) X10*3/uL Eos # (Auto) 0.3 (0.0-0.4) X10*3/uL Baso # (Auto) 0.1 (0.0-0.2) X10*3/uL Abs Immat Gran (auto) 0.01 (0.00-0.03) X10*3/uL Absolute Neuts (auto) 4.0 (2.0-8.3) x10*3/uL Absolute Nucleated RBC 0.000 (0.0-0.012) X10*3/uL Nucleated RBC % (auto) 0.0 (0.0-0.2) /100WBC Sodium 139 (135-145) mmol/L Potassium 4.0 (3.3-5.1) mmol/L Chloride 104 (96-108) mmol/L Carbon Dioxide 26 (22-29) mmol/L Anion Gap 13 (12-20) BUN 8 L (9-16) mg/dL Creatinine 0.94 (0.5-1.4) mg/dL Estim Creat Clear Calc 55.8 Estimated GFR > 60 Random Glucose 121 H (60-115) mg/dL Calcium 9.8 D (8.4-10.2) mg/dL Total Bilirubin 0.4 (0.0-1.0) mg/dL AST 22 (5-31) U/L ALT 7 (0-31) U/L Alkaline Phosphatase 115 (39-117) U/L Troponin I High Sens 2.9 (<3.5-17.0) ng/L Total Protein 7.6 (6.5-8.0) g/dL Albumin 4.1 (3.5-5.0) g/dL Influenza Type A (PCR) NEGATIVE (Negative) Influenza Type B (PCR) NEGATIVE (Negative) RSV RNA Qual (PCR) NEGATIVE (Negative) SARS-CoV-2 RNA (RT-PCR) NEGATIVE (Negative) Independent Interpretation I performed an independent interpretation of an: EKG and Plain X-Ray Interpretation: My interpretation is in agreement with the radiologist's impression of this imaging study. L EXAMINATION: XR CHEST CLINICAL INFORMATION: Shortness of breath. Chest pain. COMPARISON: None available. TECHNIQUE: 2 views of the chest were obtained. FINDINGS: No consolidation, pleural effusion or pneumothorax. Cardiomediastinal silhouette is normal in size. S-shaped curvature of the thoracic spine. Vascular clips overlapping the midline of the lower neck. XR/XR chest 2V IMPRESSION: No acute airspace disease. Scoliosis, thoracic spine. Electronically signed by: Eduardo Oneal MD 06/25/2024 10:40 AM EDT RP Dictated By: Eduardo Rosas Signed By: Electronically signed by Eduardo Remy 06/25/24 1040 Vent. Rate: 060 BPM Atrial Rate: 060 BPM P-R Int: 156 ms QRS Dur: 094 ms QT Int: 428 ms P-R-T Axes: 002 007 095 degrees QTc Int: 428 ms Normal sinus rhythm When compared with ECG of 31-JUL-2023 12:01, Non-specific change in ST segment in Anterior leads T wave inversion now evident in Anterolateral leads DD/ 0930 Radiology Impression Discussion of test interpretation with radiology: I have reviewed the radiologist's reading. Discharge Plan Discharge Clinical Impression: Chest pain Patient Disposition: Home, Self-Care Instructions: Chest Pain (DC) Additional Instructions: Your work up today showed no emergent conditions. Your blood work, EKG, and chest x-ray were all unremarkable. Follow up with your primary care provider. Return to the emergency department immediately if your symptoms worsen or if you develop any dizziness, shortness of breath, difficulty breathing, chest pain, blurry vision, loss of vision, nausea, vomiting, abdominal pain, fever, chills, back pain, or any other complaints. Prescriptions: No Action clotrimazole-betamethasone 1-0.05 % cream 1 appl topical BID 14 Days Qty: 45 0RF buprenorphine-naloxone [Suboxone] 8-2 mg film 1 film sublingual TID 30 Days Qty: 90 2RF Flublok Quad (PF) 180 mcg (45 mcg x 4)/0.5 mL syringe 0.5 ml IM ONCE Qty: 0.5 0RF meloxicam 15 mg tablet 15 mg PO DAILY Referrals: [facility] Family Medicine [Provider Group] (Call to establish and follow up with a primary care provider. If you already have a primary care provider, please follow up with them.) [facility] Primary Care, [facility] [Provider Group] (Call to establish and follow up with a primary care provider. If you already have a primary care provider, please follow up with them.) [facility] Primary Care,[facility] [Provider Group] (Call to establish and follow up with a primary care provider. If you already have a primary care provider, please follow up with them.) Stand Alone Forms: Work/School Release Interventions: ED Discharge Assessment Last Done: 06/25/24 12:29 Discharge Date/Time: 06/25/24 12:30 Print Language: Estonian
[2024-06-25 12:29] VITALS: BP 188/99; PULSE 56; RESP 18; TEMP 36.6; O2SAT 98
== END 2024-06-25 12:30 | disposition home or self-care (01) ==
PROVIDERS: Emergency Provider Emergency Medicine Emergency Medical Services
DX: R06.02 Shortness of breath (principal); R07.89 Other chest pain; R94.31 Abnormal electrocardiogram [ECG] [EKG]; Z03.818 Encounter for observation for suspected exposure to other biological agents ruled out; Z87.891 Personal history of nicotine dependence
CPT/HCPCS: 0241U; 71046; 80053; 84484; 85025; 93005; 99283; 99284

== ENCOUNTER → 2024-06-25 09:33 | Outpatient (BNV) | payer OTHER, SELFPAY | PROVIDERS: Emergency Provider Emergency Medicine Emergency Medical Services; Visit Provider Internal Medicine Cardiovascular Disease | DX: R07.9 Chest pain, unspecified (principal); R94.31 Abnormal electrocardiogram [ECG] [EKG] | CPT/HCPCS: 93010 ==

== ENCOUNTER → 2024-06-25 09:43 | Outpatient (BNV) | payer OTHER, SELFPAY | PROVIDERS: Visit Provider Radiology Diagnostic Radiology | DX: R06.02 Shortness of breath (principal) | CPT/HCPCS: 71046 ==

== ENCOUNTER 2024-09-06 12:50 | Outpatient (AMB) | payer OTHER, SELFPAY ==
--- NOTE | 2024-09-06 12:51 | A.OFFVISCC_ITS ---
Intake Visit Reasons: MAT Tele Allergies No Known Allergies [No Known Allergies*] Allergy (Verified 06/25/24 09:41) [facility] MAT Tele: Details: Patient presents for follow up via telehealth on Leora denisse Discussed bereavement supports --feels well supported no issues related to recovery Review of Systems Const Reports as per [facility] Telehealth Telehealth Telehealth Platform: Telephone Location of provider rendering services: practice address Location of patient: address on file Patient Identification confirmed using: Name, : Yes Telehealth method: voice only Patient verbally consented to treatment: Yes Patient verbally consented to billing insurance company: Yes Patient informed of any privacy concerns related to visit: Yes Minutes spent on Phone/Video with Pt.: 15 Assessment & Plan Assessment & Plan (1) Opioid use disorder, moderate, in sustained remission: Code(s): F11.21 - Opioid dependence, in remission Category: Medical Plan: * continue suboxone at current dose * follow up 3 months * encouraged to call office should she need to be seen sooner [facility] Medical History Tobacco use disorder Fentanyl use disorder, moderate Opioid use disorder Disc degeneration, lumbar Right lumbar radiculopathy Surgical History History of foot surgery History of carpal tunnel surgery of left wrist H/O section Cervical post-laminectomy syndrome Family History Father Stroke Mother Ovarian cancer Brother No problems noted. Son No problems noted. Son No problems noted. 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
== END 2024-09-06 15:30 | disposition home or self-care (01) ==
PROVIDERS: PCP Internal Medicine; Visit Provider Nurse Practitioner Psychiatric/Mental Health
DX: F11.21 Opioid dependence, in remission (principal)
CPT/HCPCS: 98016

== ENCOUNTER 2024-10-29 12:54 | Outpatient (AMB) | payer OTHER, SELFPAY ==
--- NOTE | 2024-10-29 13:03 | MHC.PC.OV ---
Vital Signs 10/29/24 13:04 Height 5 ft 5 in Weight 155 lb 6 oz BMI 25.9 BP 150/70 H Blood Pressure Location Lt brachial Position Sitting Pulse 62 Pulse Source Pulse Oximeter Pulse Oximetry (%) 98 Oxygen Delivery Method Room Air Intake Visit Reasons: PHYSICAL Intake Note: Patient is here today for a physical. Avionics Electrical Engineer Required: No Service Worker: Not Required per policy Accompanied by: Self / Same As Patient Allergies No Known Allergies [No Known Allergies*] Allergy (Verified 10/29/24 13:07) Medication List - Last Reconciled 11/01/24 by David Lopez MD buprenorphine-naloxone 8-2 mg (Suboxone) 1 film sublingual TID 30 days clotrimazole-betamethasone 1-0.05 % 1 appl topical BID 2 weeks meloxicam 15 mg PO DAILY Tobacco use date assessed: 10/29/24 Dental Screening Dental Screen Date: 10/29/24 Did you have a dental visit in the last 12 months?: Yes Did you have a dental problem in the last 6 months where you did not have access to dental care?: No Was dental information given to patient?: Patient has dentist HPI PHYSICAL HPI Details has arthritis and on Suboxone for pain; apparently compliant [facility] Medical History Tobacco use disorder Fentanyl use disorder, moderate Opioid use disorder Disc degeneration, lumbar Right lumbar radiculopathy Surgical History History of foot surgery History of carpal tunnel surgery of left wrist H/O section Cervical post-laminectomy syndrome Family History Father Stroke Mother Ovarian cancer Brother No problems noted. Son No problems noted. Son No problems noted. 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 1. Little interest or pleasure in doing things: several days 3. Trouble falling or staying asleep, or sleeping too much: not at all 4. Feeling tired or having little energy: not at all 5. Poor appetite or overeating: not at all 6. Feeling bad about yourself - or that you are a failure or have let yourself or your family down: not at all 7. Trouble concentrating on things, such as reading the newspaper or watching television: not at all 8. Moving or speaking so slowly that other people could have noticed. Or the opposite - being so fidgety or restless that you have been moving around a lot more than usual: not at all 9. Thoughts that you would be better off or of hurting yourself in some way: not at all 54028 - PHQ-9 Billing: Yes Source: Developed by Drs. Raheel Bravo, Sabine Talavera, Que Ron and colleagues, with an educational dianne from [employer]. Thrive Questionnaire Date Thrive assessed: 10/29/24 I am a: Patient What is your living situation today?: I have a steady place to live Within the past 12 months, did the food you bought not last and you didn't have the money to get more?: Sometimes True Within the past 12 months, did you worry whether your food would run out before you got money to buy more?: Sometimes True Do you have trouble paying for medicines?: No Do you have trouble getting transportation to medical appointments?: No Do you have trouble paying your heating and electricity bill?: No Do you have trouble taking care of your child, family member or friend?: No Do you have trouble with day-to-day activities such as bathing, preparing meals, shopping, managing finances, etc.?: I choose not to answer this question Are you currently unemployed and looking for a job?: I choose not to answer this question Are you interested in more education?: I choose not to answer this question Please select the resources that you would like help with: None Currently or been in a relationship where the following occur: No concerns reported THRIVE Score: 2 AUDIT C Alcohol Use Questionnaire (AUDIT-C) 1. How often do you have a drink containing alcohol?: Never 3. How often do you have six or more drinks on one occasion?: Never Total Score: 0 FRANCISCO-7 AMB Questionnaire FRANCISCO-7 Date FRANCISCO - 7 assessed: 10/29/24 Feeling nervous, anxious, or on edge: 0 = Not at all Not being able to stop or control worryin = Not at all Worrying too much about different things: 0 = Not at all Trouble relaxin = Not at all Being so restless that it is hard to sit still: 0 = Not at all Becoming easily annoyed or irritable: 0 = Not at all Feeling afraid as if something awful might happen: 0 = Not at all Total FRANCISCO-7 score (0-4 normal; 5-9 mild; 10-14 moderate; 15-21 severe): 0 Source: Developed by Drs. Raheel Bravo, Sabine Talavera, Que Ron and colleagues, with an educational dianne from [employer]. FRANCISCO-7 Assessment Billing FRANCISCO-7 Assessment Tool: FRANCISCO-7 Assessment 20448 Review of Systems Const Denies chills, Denies fatigue, Denies headache(s) and Denies weight loss Eyes Denies change in vision, Denies diplopia and Denies eye pain ENT Denies vertigo, Denies dizziness, Denies headache(s) and Denies nasal discharge Card Denies chest pain, Denies rapid heart rate and Denies dyspnea on exertion Resp Denies chest congestion, Denies cough, Denies pain with cough and Denies dyspnea on exertion GI Denies abdominal pain, Denies hematochezia and Denies change in bowel habits Musc Denies myalgias, Denies arthralgias and Denies joint swelling Skin/Breast Denies lesions and Denies unusual bruising Neuro Denies vertigo, Denies dizziness, Denies headache(s) and Denies focal weakness Endo Denies fatigue Physical exam (Primary Care) Vital Signs: Last Vital Signs Pulse 62 10/29/24 13:04 BP 150/70 H 10/29/24 13:04 Pulse Ox 98 10/29/24 13:04 Oxygen Delivery Method Room Air 10/29/24 13:04 BMI result Body Mass Index 25.9 Tobacco/Smoking Status: Tobacco use Status Tobacco use date assessed 10/29/24 10/29/24 13:05 Patient Tobacco Use Status Current everyday Tobacco 10/29/24 13:05 Tobacco use type Cigarette 10/29/24 13:05 e-Cigarette/Vaping Use Never Used 10/29/24 13:05 Thrive Assessment: Date of Thrive Assessment Date Thrive assessed 10/29/24 10/29/24 13:05 Currently or been in a relationship where the following occur: No concerns reported Const General: cooperative, healthy appearing and no acute distress Orientation/consciousness: oriented to person, oriented to place and oriented to time HENMT Head: Yes normal to inspection, Yes normocephalic and Yes atraumatic Mouth: Normal oral and palatal mucosa present and tongue normal Throat: Yes posterior oropharynx normal and Yes uvula midline Eyes General: appearance normal, both eyes and all related structures Neck Neck: Yes normal visual inspection, Yes full ROM and Yes no lymphadenopathy Thyroid: Thyroid normal Carotids: normal carotid upstroke Chest Chest palpation & inspection: normal inspection of the chest Resp Effort & Inspection: normal respiratory effort and able to speak in complete sentences Auscultation: clear to auscultation bilaterally Cardio Jugular venous distension: no JVD Palpation: normal PMI Rate: regular rate Rhythm: regular rhythm Heart sounds: S1 normal heart sound present and S2 normal heart sound present GI Inspection: Yes normal to inspection Palpation (GI): Soft to palpation and No hepatosplenomegaly present Auscultation: normal bowel sounds General: Yes no CVA tenderness Back/Spine/Pelvis Back: no CVA tenderness Skin General skin exam: no rashes or lesions noted Neuro General: oriented to person, oriented to place and oriented to time Extrem General: Yes normal to inspection and Yes full ROM Coding Level of Care Code Est Pt Prev Care 40-64y(29346) Diagnoses Physical exam Z00.00 Opioid use disorder, moderate, in sustained remission F11.21 Additional Codes FRANCISCO-7 Assessment Billing - FRANCISCO-7 Assessment Tool: FRANCISCO-7 Assessment 30542 ([id number]) PHQ-9 - 64022 - PHQ-9 Billing: Yes ([id number]) Assessment & Plan Assessment & Plan (1) Physical exam: Code(s): Z00.00 - Encounter for general adult medical examination without abnormal findings Category: Medical Plan: stable; do labs (2) Opioid use disorder, moderate, in sustained remission: Code(s): F11.21 - Opioid dependence, in remission Category: Medical Plan: stable; as per clinic
[2024-10-29 13:04] VITALS: BP 150/70; PULSE 62; O2SAT 98; BMI 25.9
--- OUTSIDE RECORDS SUMMARY | 2024-10-29 14:57 | XMS_ITS | Patient Health Record ---
Demographics Address [address] [address] [place] [address] Preferred Language en Marital Status Sabianist Affiliation Unknown Race White Ethnic Group Not or Lati no Author Organization [facility] [place] Address [address] [place] [address] Support Name Relationship Address Phone HoskinsBar burgos Emergency Contact [address] [place] [id number] HoskinsNetta burgos Guarantor Unknown [phone] Care Team Providers Care Playground Worker Name Role Phone David Lopez MD Primary Care Provider Tacho [place] Unavailable [phone] Reason For Referral No Information Medications Medication SIG (Take, Route, Frequency, Duration) Notes Start Date End Date Status Ibuprofen 800 MG 1 tablet every Orall y Three times a day for 10 days 11/12/2018 Not-Taking Physical Therapy . . . 2-3x/week for 3- 4 weeks Active Gabapentin 300 MG 1 capsule Orally Onc e a day for 10 days 04/22/2019 Not-Taking Keflex 500 MG 1 capsule Orally denisse ry 12 hrs for 10 day(s) 04/22/2019 Not-Taking Augmentin 500-125 MG 1 tablet Orally denisse ry 8 hrs for 20 day(s) 03/11/2019 Not-Taking Zolpidem Tartrate 5 MG 1 tablet at bedti me Orally Once a day PRN Active oxyCODONE-Acetaminophen Active Ibuprofen 800 MG 1 tablet with food o r milk as needed Orally Three times a day for 30 days 04/22/2019 Active Walking Boot/Pneumatic As directed Wear Daily for Until further notice Active Keflex 500 MG 1 capsule Orally denisse ry 12 hrs for 10 day(s) 11/12/2018 Not-Taking Cyclobenzaprine HCl 10 MG 1 tablet Orall y Three times a day PRN Active Social History Tobacco Use: Social History Observation Description Date Details (start date - stop date) Current Smoker NA - NA Tobacco Use/Smoking Question Answer Notes Are you a: current smoker When did you start smoking? 18 years old How often do you smoke cigarettes? every day How many cigarettes a day do you smoke? 6-10 How soon after you wake up d o you smoke your first cigarette? 6-30 minutes Are you interested in quitting? Not ready to margarita t Additional Findings: Tobacco User Light cigarett e smoker ((1-9 cigs/day) Alcohol Screen Question Answer Notes Did you have a drink contain ing alcohol in the past year? Yes How often did you have a dri nk containing alcohol in the past year? Monthly or less (1 point) Points 1 Interpretation Negative Tobacco use other than smoking: Question Answer Notes Are you an other tobacco user? No Problems Problem Type SNOMED Code ICD Code Onset Dates Problem Status W/U Status Risk Notes Problem Acquired hallux valgus (41204386) Hallux valgus (acquired), right foot (M20.11) Active confirmed Problem Acquired hallux rigidus (0431699) Hallux rigidus, left foot (M20.22) Active confirmed Problem Acquired hammer toe of right foot (5077837053941 105) Other hammer toe(s) (acquired), right foot (M20.41) Active confirmed Problem Acquired hammer toe of left foot (4500167260722 103) Other hammer toe(s) (acquired), left foot (M20.42) Active confirmed Problem Acquired hallux rigidus (8024619) Hallux rigidus, right foot (M20.21) Active confirmed Plan Of Treatment Pending Test Test Name Order Date X ray : Foot, left 2V 05/25/2014 X ray : Foot, left 2V 10/01/2018 X ray : Foot, right 2V 10/01/2018 X ray : Foot, right 2V 07/31/2016 X ray : Foot, right 3V 05/10/2019 X ray : Foot, right 3V 05/24/2019 [id number] Plate 05/25/2014 [id number] OF HEMATOMA/FLUID 019 [id number] TENDON SHEATH/LIGAMENT 1 09/30/201524691,[id number] TENDON SHEATH/LIGAMENT 1 09/03/2013 Insurance Providers Payer Name Payer Address Payer Phone Subscriber Number Group Number Insured Name Patient Relationship to Insured Coverage Start Date Coverage End Date [address] [address] [id number] Bar Hoskins Spouse - patient is the spouse of the insured Medical (General) History Medical History History ICD Code Arthritis Back,Hip,and Knee pain Chicken pox Surgical History Surgery Date(Month/Year) disc replacement neck Total Matricectomy L 1-3 11/19/2018 P&A Nail Matricectomy R1,3 03/18/2019 HT R2nd, Ten&Cap R2nd MTPJ 05/2019
== END 2024-10-29 13:21 | disposition home or self-care (01) ==
PROVIDERS: PCP Internal Medicine; Visit Provider Internal Medicine
DX: Z00.00 Encounter for general adult medical examination without abnormal findings (principal); F11.21 Opioid dependence, in remission

== ENCOUNTER → 2024-10-29 12:54 | Outpatient (BNVA) | payer OTHER, SELFPAY | PROVIDERS: PCP Internal Medicine; Visit Provider Internal Medicine | DX: Z00.00 Encounter for general adult medical examination without abnormal findings (principal); F11.21 Opioid dependence, in remission | CPT/HCPCS: 96127; 99396 ==

== ENCOUNTER 2024-12-01 13:54 | Outpatient (REF) | payer OTHER, SELFPAY ==
[2024-12-07 10:40] LABS: Noroxycodone, Ur NEGATIVE
[2024-12-07 10:41] LABS: Codeine, Ur NEGATIVE; Hydrocodone, Ur NEGATIVE; Hydromorphone, Ur NEGATIVE; Morphine, Ur NEGATIVE; Norhydrocodone, Ur NEGATIVE; Oxycodone, Ur NEGATIVE; Oxymorphone, Ur NEGATIVE
== END 2024-12-01 13:55 | disposition home or self-care (01) ==
LOC: HO.LNP 13:54
PROVIDERS: PCP Internal Medicine; Visit Provider Internal Medicine
DX: F11.21 Opioid dependence, in remission (principal); Z79.899 Other long term (current) drug therapy
CPT/HCPCS: 80365; 99212; G0480

== ENCOUNTER 2024-12-01 13:54 | Outpatient (AMB) | payer OTHER, SELFPAY ==
[2024-12-01 14:21] VITALS: PULSE 92; O2SAT 98; BMI 26.3
--- NOTE | 2024-12-01 14:21 | MHC.OFFVIS ---
Vital Signs 12/01/24 14:21 Height 5 ft 5 in Weight 158 lb BMI 26.3 Pulse 92 Pulse Source Pulse Oximeter Pulse Oximetry (%) 98 Oxygen Delivery Method Room Air Intake Visit Reasons: mat visit Allergies No Known Allergies [No Known Allergies*] Allergy (Verified 12/01/24 14:22) HPI HPI mat visit: Details: Her on Mindy. She is bored and is eating sugary foods and gaining weight. She has screen positive for oxycodone and says didnt take it as well as marijuana and buprenorphine. She has enough Suboxone for couple months. She takes Suboxone 8/2 film tid and feels adequate dose. 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 [facility] Medical History Tobacco use disorder Fentanyl use disorder, moderate Opioid use disorder Disc degeneration, lumbar Right lumbar radiculopathy Surgical History History of foot surgery History of carpal tunnel surgery of left wrist H/O section Cervical post-laminectomy syndrome Family History Father Stroke Mother Ovarian cancer Brother No problems noted. Son No problems noted. Son No problems noted. 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 Cognitive needs: No Hearing needs: No Vision needs: No Review of Systems Const All systems reviewed & are unremarkable except as noted in HPI and below Physical Exam Vital Signs: Last Vital Signs Pulse 92 12/01/24 14:21 Pulse Ox 98 12/01/24 14:21 Oxygen Delivery Method Room Air 12/01/24 14:21 BMI result Body Mass Index 26.3 Results AMB 14 Panel Urine Drug Screen Urine Marijuana (THC) Positive Last Edit by Guzman Quiñonez CMA on 12/01/24 14:27 Urine Cocaine Negative Last Edit by Guzman Quiñonez CMA on 12/01/24 14:27 Urine Morphine Negative Last Edit by Guzman Quiñonez CMA on 12/01/24 14:27 Urine Methamphetamine Negative Last Edit by Guzman Quiñonez CMA on 12/01/24 14:27 Urine Amphetamine Negative Last Edit by Guzman Quiñonez CMA on 12/01/24 14:27 Urine Benzodiazepine Negative Last Edit by Guzman Quiñonez CMA on 12/01/24 14:27 Urine Barbiturates Negative Last Edit by Guzman Quiñonez CMA on 12/01/24 14:27 Urine Methadone Negative Last Edit by Guzman Quiñonez CMA on 12/01/24 14:27 Urine Buprenorphine Positive Last Edit by Guzman Quiñonez CMA on 12/01/24 14:27 Urine Tricyclic Antidepressant Negative Last Edit by Guzman Quiñonez CMA on 12/01/24 14:27 Urine MDMA Negative Last Edit by Guzman Quiñonez CMA on 12/01/24 14:27 Urine Oxycodone Positive Last Edit by Guzman Quiñonez CMA on 12/01/24 14:27 Urine Phencyclidine Negative Last Edit by Guzman Quiñonez CMA on 12/01/24 14:27 Urine Propoxyphene Negative Last Edit by Guzman Quiñonez CMA on 12/01/24 14:27 Results Reviewed Results Reviewed: Laboratory Last Values POC Urine Buprenorphine Positive 12/01/24 14:22 POC Urine Morphine Negative 12/01/24 14:22 POC Urine Oxycodone Positive 12/01/24 14:22 POC Urine Methadone Negative 12/01/24 14:22 POC Urine Propoxyphene Negative 12/01/24 14:22 POC Urine Barbiturates Negative 12/01/24 14:22 POC U Tricyclic Antidpr Negative 12/01/24 14:22 POC Urine PCP Negative 12/01/24 14:22 POC Ur Amphetamines Negative 12/01/24 14:22 POC Ur Methamphetamine Negative 12/01/24 14:22 POC Urine MDMA Negative 12/01/24 14:22 POC Ur Benzodiazepine Negative 12/01/24 14:22 POC Urine Cocaine Negative 12/01/24 14:22 POC Ur Marijuana (THC) Positive 12/01/24 14:22 Assessment & Plan Assessment & Plan (1) Opioid use disorder, moderate, in sustained remission: Comment: She has oxy in urine screen and denies ,maybe contaminant Code(s): F11.21 - Opioid dependence, in remission Category: Medical Plan: Check urine GCMS expanded see if oxycodone ( had script but she didnt) Check HIV and Hepatitis C. See just before last refill due. She doesnt feel needs therapist,no self harm. Orders: Orders Hepatitis C Antibody Today F11.21 - Opioid dependence, in remission HIV Ab/Ag Today F11.21 - Opioid dependence, in remission Opiates GCMS Expanded, Ur Today F1.21 - Opioid dependence, in remission AMB 14 Panel Urine Drug Screen Today F1.21 - Opioid dependence, in remission Coding Level of Care Code Est Pt Level 3 (14560) Diagnoses Opioid use disorder, moderate, in sustained remission
--- OUTSIDE RECORDS SUMMARY | 2024-12-01 16:38 | XMS_ITS | Patient Health Record ---
Demographics Address [address] [place] [address] Preferred Language en Marital Status Evangelical Affiliation Unknown Race White Ethnic Group Not or Lati no Author Organization [facility] [place] Address [address] [place] [address] Support Name Relationship Address Phone HoskinsBar burgos Emergency Contact [address] [place] [id number] HoskinsNetta burgos Guarantor Unknown [phone] Care Team Providers Care Mid Level Business Analyst Name Role Phone David Lopez MD Primary Care Provider Tacho [place] Unavailable [phone] Reason For Referral No Information Medications Medication [...] Status Risk Notes Problem Acquired hallux valgus (22116963) Hallux valgus (acquired), right foot (M20.11) Active confirmed Problem Acquired hallux rigidus (2592169) Hallux rigidus, left foot (M20.22) Active confirmed Problem Acquired hammer toe of right foot (5227837237617 105) Other hammer toe(s) (acquired), right foot (M20.41) Active confirmed Problem Acquired hammer toe of left foot (7448332468338 103) Other hammer toe(s) (acquired), left foot (M20.42) Active confirmed Problem Acquired hallux rigidus (2865026) Hallux rigidus, right foot (M20.21) Active confirmed Plan Of Treatment Pending Test Test Name Order Date X ray : Foot, left 2V 05/25/2014 X ray : Foot, left 2V 10/01/2018 X ray : Foot, right 2V 10/01/2018 X ray : Foot, right 2V 07/31/2016 X ray : Foot, right 3V 05/10/2019 X ray : Foot, right 3V 05/24/2019 [id number] Plate 05/25/2014 [id number] OF HEMATOMA/FLUID 019 [id number] TENDON SHEATH/LIGAMENT 1 09/30/201523179,[id number] TENDON SHEATH/LIGAMENT 1 09/03/2013 Insurance Providers Payer Name Payer Address Payer Phone Subscriber Number Group Number Insured Name Patient Relationship to Insured Coverage Start Date Coverage End Date [address] [address] [id number] Bar Hoskins Spouse - patient is the spouse of the insured Medical (General) History Medical History History ICD Code Arthritis Back,Hip,and Knee pain Chicken pox Surgical History Surgery Date(Month/Year) disc replacement neck Total Matricectomy L 1-3 11/19/2018 P&A Nail Matricectomy R1,3 03/18/2019 HT R2nd, Ten&Cap R2nd MTPJ 05/2019
== END 2024-12-01 14:57 | disposition home or self-care (01) ==
LOC: HO.HID 13:55
PROVIDERS: PCP Internal Medicine; Visit Provider Internal Medicine
DX: F11.21 Opioid dependence, in remission (principal)
CPT/HCPCS: 99213

== ENCOUNTER 2025-01-28 12:55 | Outpatient (AMB) | payer OTHER, SELFPAY ==
--- NOTE | 2025-01-28 12:55 | A.OFFVISCC_ITS ---
Vital Signs 01/28/25 13:01 BP 142/88 H Blood Pressure Location Lt femoral Position Sitting Pulse 78 Pulse Source Pulse Oximeter Pulse Oximetry (%) 99 Oxygen Delivery Method Room Air Intake Visit Reasons: 2 mth follow up,mat visit Intake Note: Mayelin presents for 2 month follow up Allergies No Known Allergies [No Known Allergies*] Allergy (Verified 01/28/25 13:02) HPI Comments Details: She is doing better but still eating too much she says She has no complaints. Review of Systems Const All systems reviewed & are unremarkable except as noted in HPI and below Physical Exam Vital Signs: Last Vital Signs Pulse 78 01/28/25 13:01 BP 142/88 H 01/28/25 13:01 Pulse Ox 99 01/28/25 13:01 Oxygen Delivery Method Room Air 01/28/25 13:01 Const General: cooperative [facility] Medical History Tobacco use disorder Fentanyl use disorder, moderate Opioid use disorder Disc degeneration, lumbar Right lumbar radiculopathy Surgical History History of foot surgery History of carpal tunnel surgery of left wrist H/O section Cervical post-laminectomy syndrome Family History Father Stroke Mother Ovarian cancer Brother No problems noted. Son No problems noted. Son No problems noted. 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 See in two months. Medications: New buprenorphine-naloxone 8-2 mg (Suboxone) 1 film sublingual TID 3 days 90 ea 1RF buprenorphine-naloxone 8-2 mg (Suboxone) 1 film sublingual TID 90 ea 1RF 30 days
[2025-01-28 13:01] VITALS: BP 142/88; PULSE 78; O2SAT 99
--- OUTSIDE RECORDS SUMMARY | 2025-01-28 13:08 | XMS_ITS | Patient Health Record ---
Demographics Address [address] [place] [address] Preferred Language en Marital Status Confucianism Affiliation Unknown Race White Ethnic Group Not or Lati no Author Organization [facility] [place] Address [address] [place] [address] Support Name Relationship Address Phone Hoskins, Bar Emergency Contact [address] [place] [id number] HoskinsNetta burgos Guarantor Unknown [phone] Care Team Providers Care Blue Line Trimmer Name Role Phone David Lopez MD Primary Care Provider Tacho C[place] Unavailable [phone] Reason For Referral No Information Medications Medication [...] Status Risk Notes Problem Acquired hallux valgus (71316681) Hallux valgus (acquired), right foot (M20.11) Active confirmed Problem Acquired hallux rigidus (6660641) Hallux rigidus, left foot (M20.22) Active confirmed Problem Acquired hammer toe of right foot (8858093348648 105) Other hammer toe(s) (acquired), right foot (M20.41) Active confirmed Problem Acquired hammer toe of left foot (9349486936014 103) Other hammer toe(s) (acquired), left foot (M20.42) Active confirmed Problem Acquired hallux rigidus (3102565) Hallux rigidus, right foot (M20.21) Active confirmed Plan Of Treatment Pending Test Test Name Order Date X ray : Foot, left 2V 05/25/2014 X ray : Foot, left 2V 10/01/2018 X ray : Foot, right 2V 10/01/2018 X ray : Foot, right 2V 07/31/2016 X ray : Foot, right 3V 05/10/2019 X ray : Foot, right 3V 05/24/2019 [id number] Plate 05/25/2014 [id number] OF HEMATOMA/FLUID 019 [id number] TENDON SHEATH/LIGAMENT 1 09/30/201539604,[id number] TENDON SHEATH/LIGAMENT 1 09/03/2013 Insurance Providers Payer Name Payer Address Payer Phone Subscriber Number Group Number Insured Name Patient Relationship to Insured Coverage Start Date Coverage End Date [address] [address] [id number] Bar Hoskins Spouse - patient is the spouse of the insured Medical (General) History Medical History History ICD Code Arthritis Back,Hip,and Knee pain Chicken pox Surgical History Surgery Date(Month/Year) disc replacement neck Total Matricectomy L 1-3 11/19/2018 P&A Nail Matricectomy R1,3 03/18/2019 HT R2nd, Ten&Cap R2nd MTPJ 05/2019
== END 2025-01-28 13:35 | disposition home or self-care (01) ==
LOC: HO.HCC 12:55
PROVIDERS: PCP Internal Medicine; Visit Provider Internal Medicine
DX: F11.21 Opioid dependence, in remission (principal)
CPT/HCPCS: 99213

== ENCOUNTER → 2025-01-28 12:55 | Outpatient (BNVA) | payer OTHER, SELFPAY | PROVIDERS: PCP Internal Medicine; Visit Provider Internal Medicine | DX: F11.21 Opioid dependence, in remission (principal) | CPT/HCPCS: 99212 ==

== ENCOUNTER 2025-03-28 13:05 | Outpatient (AMB) | payer OTHER, SELFPAY ==
[2025-03-28 13:10] VITALS: BP 160/82; PULSE 74; O2SAT 97; BMI 27.6
--- NOTE | 2025-03-28 13:10 | A.OFFVIS_ITS ---
Vital Signs 03/28/25 13:10 Height 5 ft 5 in Weight 166 lb BMI 27.6 BP 160/82 H Pulse 74 Pulse Oximetry (%) 97 Intake Visit Reasons: MAT Allergies No Known Allergies (No Known Allergies*) Allergy (Verified 03/28/25 13:11) Medication List - Last Reconciled 03/28/25 by Jessenia Puckett NP-C buprenorphine-naloxone 8-2 mg (Suboxone) 1 film sublingual TID 30 days clotrimazole-betamethasone 1-0.05 % 1 appl topical BID 2 weeks HPI Comments Details: The patient is a 64-year-old female presenting for a follow-up visit r/t substance use disorder in remission. Denies opioids, alcohol, or other substance use with the exception of smoking marijuana and continues to smoke cigarettes daily, with a desire to cease smoking. Past attempts at smoking cessation were intermittently successful. Her history includes familial trauma and recent bereavement due to passing in August 2024 due to colon cancer, they were for over 30 year s. She cody with marijuana use and receives familial support. The patient declines engagement with mental health services and is not currently taking any medication for depression. [facility] Medical History Tobacco use disorder Fentanyl use disorder, moderate Opioid use disorder Disc degeneration, lumbar Right lumbar radiculopathy Surgical History History of foot surgery History of carpal tunnel surgery of left wrist H/O section Cervical post-laminectomy syndrome Family History Father Stroke Mother Ovarian cancer Brother No problems noted. Son No problems noted. Son No problems noted. 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 Cognitive needs: No Hearing needs: No Vision needs: No Review of Systems Const All systems reviewed & are unremarkable except as noted in HPI and below Physical Exam Vital Signs: Last Vital Signs Pulse 74 03/28/25 13:10 BP 160/82 H 03/28/25 13:10 Pulse Ox 97 03/28/25 13:10 BMI result Body Mass Index 27.6 Const General: cooperative Nutritional Appearance: average body habitus Orientation/consciousness: patient oriented x3 Limitations: no limitations Neuro General: patient oriented x3 Psych Appearance: well kempt Mental Status: mental status grossly normal Speech and movement: Normal speech and movement present Affect: Sad affect present (Denies suicidal and homicidal ideation. ) Attitude: cooperative Thought process: Normal thought process present Thought content: Normal thought content present Insight: Good insight present (Psych) Judgement: Good judgement present (Psych) Assessment & Plan Assessment & Plan (1) Opioid use disorder in remission: Code(s): F11.91 - Opioid use, unspecified, in remission Category: Medical (2) Moderate dependence on smoking: Code(s): F17.200 - Nicotine dependence, unspecified, uncomplicated Category: Medical Plan The plan of care is to continue with buprenorphine-naloxone 8-2 mg TID and start on nicotine patches for smoking cessation. Education provided re: follow the instructions on nicotine replacement patches, not to concurrently smoke while wearing patches and to call and report any side effects to [facility]. Referral oferred for mental health services and or medications for symtoms of depression, the patient declined. Medications: New nicotine apply 1-21 mg NICOTINE PATCH daily for 28 days; follow with 1-14 mg PATCH daily for 14 days, then 1-7mg PATCH daily for 14 days transdermally every 24 hours; 56 patches 0RF Smoking Cessation 56 days Changed From buprenorphine-naloxone 8-2 mg (Suboxone) 1 film sublingual TID 30 days 90 ea 1RF To buprenorphine-naloxone 8-2 mg (Suboxone) One film sublingual-three times per day. 1 film sublingual TID 90 ea 1RF 30 days Patient Instructions: - Continue on buprenorphine-naloxone 8-2 mg three time per day. - Start on nicotine patches per instructions. - Do not smoke cigarettes while wearing nicotine patches. - Follow up in two months or sooner, if needed. - Call [facility] with questions, concerns, or to report side effects. - The patient verbalized understanding and agreed with plan of care. Scribe Plan - Not visible on output: Patient was informed and verbally consented to the use of an ambient scribe for clinical note documentation during this visit. Coding Level of Care Code Est Pt Level 4 (91612) Diagnoses Opioid use disorder in remission F11.91 Moderate dependence on smoking F17.200
--- OUTSIDE RECORDS SUMMARY | 2025-03-28 13:46 | XMS_ITS | Patient Health Record ---
Demographics Address [address] [place] [address] Preferred Language en Marital Status Gnosticist Affiliation Unknown Race White Ethnic Group Not or Lati no Author Organization [facility] [place] Address [address] [place] [address] Support Name Relationship Address Phone HoskinsBar burgos Emergency Contact [address] [place] [id number] Netta Hoskins Guarantor Unknown [phone] Care Team Providers Care Chief Executive Name Role Phone David Lopez MD Primary Care Provider Tacho [place] Unavailable [phone] Reason For Referral No Information Medications Medication SIG (Take, Route, Frequency, Duration) Notes Start Date End Date Status Ibuprofen 800 MG 1 tablet every Orall y Three times a day; Duration: 10 days 11/12/2018 Not-Taking Physical Therapy . . . 2-3x/week; Duration: 3-4 weeks Active Gabapentin 300 MG 1 capsule Orally Onc e a day; Duration: 10 days 04/22/2019 Not-Taking Keflex 500 MG 1 capsule Orally denisse ry 12 hrs; Duration: 10 day(s) 04/22/2019 Not-Taking Augmentin 500-125 MG 1 tablet Orally denisse ry 8 hrs; Duration: 20 day(s) 03/11/2019 Not-Taking Zolpidem Tartrate 5 MG 1 tablet at bedti co Orally Once a day PRN Active oxyCODONE-Acetaminophen Active Ibuprofen 800 MG 1 tablet with food o r milk as needed Orally Three times a day; Duration: 30 days 04/22/2019 Active Walking Boot/Pneumatic As directed Wear Daily; Duration: Until further notice Active Keflex 500 MG 1 capsule Orally denisse ry 12 hrs; Duration: 10 day(s) 11/12/2018 Not-Taking Cyclobenzaprine HCl 10 [...] Status Risk Notes Problem Acquired hallux valgus (51097623) Hallux valgus (acquired), right foot (M20.11) Active confirmed Problem Acquired hallux rigidus (6173514) Hallux rigidus, left foot (M20.22) Active confirmed Problem Acquired hammer toe of right foot (1309646276847 105) Other hammer toe(s) (acquired), right foot (M20.41) Active confirmed Problem Acquired hammer toe of left foot (6774696386351 103) Other hammer toe(s) (acquired), left foot (M20.42) Active confirmed Problem Acquired hallux rigidus (9996138) Hallux rigidus, right foot (M20.21) Active confirmed Plan Of Treatment Pending Test Test Name Order Date X ray : Foot, left 2V 05/25/2014 X ray : Foot, left 2V 10/01/2018 X ray : Foot, right 2V 10/01/2018 X ray : Foot, right 2V 07/31/2016 X ray : Foot, right 3V 05/10/2019 X ray : Foot, right 3V 05/24/2019 [id number] Plate 05/25/2014 [id number] OF HEMATOMA/FLUID 019 ,[id number] TENDON SHEATH/LIGAMENT 1 09/30/2015,[id number]-VIN TENDON SHEATH/LIGAMENT 1 09/03/2013 Insurance Providers Payer Name Payer Address Payer Phone Subscriber Number Group Number Insured Name Patient Relationship to Insured Coverage Start Date Coverage End Date [facility] [address] [place] [address] [id number] Bar Hoskins Spouse - patient is the spouse of the insured Medical (General) History Medical History History ICD Code Arthritis Back,Hip,and Knee pain Chicken pox Surgical History Surgery Date(Month/Year) disc replacement neck Total Matricectomy L 1-3 11/19/2018 P&A Nail Matricectomy R1,3 03/18/2019 HT R2nd, Ten&Cap R2nd MTPJ 05/2019
== END 2025-03-28 13:41 | disposition home or self-care (01) ==
LOC: HO.HCC 13:05
PROVIDERS: PCP Internal Medicine; Visit Provider Clinical Nurse Specialist Psychiatric/Mental Health
DX: F11.91 Opioid use, unspecified, in remission (principal); F17.200 Nicotine dependence, unspecified, uncomplicated
CPT/HCPCS: 99214

== ENCOUNTER → 2025-03-28 13:05 | Outpatient (BNVA) | payer OTHER, SELFPAY | PROVIDERS: PCP Internal Medicine; Visit Provider Clinical Nurse Specialist Psychiatric/Mental Health | DX: F11.91 Opioid use, unspecified, in remission (principal); F17.200 Nicotine dependence, unspecified, uncomplicated | CPT/HCPCS: 99212 ==

== ENCOUNTER 2025-04-28 11:34 | Outpatient (REF) | payer OTHER, SELFPAY ==
[2025-04-28 12:47] LABS: MANUAL DIFF FLAG NO
[2025-04-28 12:56] LABS: Hematocrit 41.5 % (37.0-47.0); Hemoglobin 14.1 g/dl (12.0-16.0); Imm Gran Abs Auto 0.01 X10*3/uL (0.00-0.03); Imm Gran Pct Auto 0.2 % (0.0-0.4); Lymphocytes Absolute Auto 2.2 X10*3/uL (1.2-4.9); Mean Corpuscular HGB Conc 34.0 g/dl (31.0-35.0); Mean Corpuscular Hemoglobin 30.3 pg (27.0-33.0); Mean Corpuscular Volume 89.1 fL (80.0-98.0); NRBC Abs Auto 0.000 X10*3/uL (0.0-0.012); NRBC Pct Auto 0.0 /100WBC (0.0-0.2); Platelet Count 210 X10*3/uL (160-400); Red Blood Count 4.66 X10*6/uL (4.20-5.50); White Blood Count 5.8 X10*3/uL (4.8-10.8)
[2025-04-28 13:49] LABS: Alanine Aminotransferase 19 U/L (0-31); Albumin Level 4.1 g/dL (3.5-5.0); Alkaline Phosphatase 110 U/L (39-117); Anion Gap 12 (12-20); Aspartate Amino Transferase 35 U/L (5-31); Blood Urea Nitrogen 10 mg/dL (9-16); Calcium 8.7 mg/dL (8.4-10.2); Carbon Dioxide 27 mmol/L (22-29); Chloride 103 mmol/L (96-108); Cholesterol 217 mg/dL (<200); Estimated Glomerular Filt Rate > 60; HDL Cholesterol 41 mg/dL (>40); Potassium 4.6 mmol/L (3.3-5.1); Sodium 137 mmol/L (135-145); Total Protein 7.3 g/dL (6.5-8.0); Triglycerides 179 mg/dL (<150)
[2025-04-28 13:59] LABS: Appearance Urine Clear; Glucose Urine UA Negative (Negative); PH 5.0 (5.0-9.0); Specific Gravity - Urine 1.020 (1.005-1.025); UMIC TRIGGER UACC YES
[2025-04-28 14:04] LABS: UACC Culture Trigger YES
[2025-04-28 14:11] LABS: Folate < 2.2 ng/mL (> or = 4.0); Vitamin B12 360 pg/mL (200-900)
== END 2025-04-28 11:35 | disposition home or self-care (01) ==
LOC: HO.LAB 11:34
PROVIDERS: PCP Internal Medicine; Visit Provider Internal Medicine
DX: M51.360 Other intervertebral disc degeneration, lumbar region with discogenic back pain only (principal); E66.3 Overweight; Z68.27 Body mass index [BMI] 27.0-27.9, adult; D64.9 Anemia, unspecified; E78.00 Pure hypercholesterolemia, unspecified; E55.9 Vitamin D deficiency, unspecified; R73.9 Hyperglycemia, unspecified; E53.8 Deficiency of other specified B group vitamins; F11.91 Opioid use, unspecified, in remission; R82.90 Unspecified abnormal findings in urine; Z71.3 Dietary counseling and surveillance; F17.200 Nicotine dependence, unspecified, uncomplicated; Z71.6 Tobacco abuse counseling
CPT/HCPCS: 36415; 80053; 80061; 81001; 82306; 82607; 82746; 83036; 84443; 85025; 87086; 96127; 99212

== ENCOUNTER 2025-04-28 11:34 | Outpatient (AMB) | payer OTHER, SELFPAY ==
[2025-04-28 11:36] VITALS: BP 154/98; PULSE 73; TEMP 36.4; O2SAT 98; BMI 27.0
--- NOTE | 2025-04-28 11:36 | MHC.PC.OV ---
Vital Signs 04/28/25 11:36 Height 5 ft 5 in Weight 162 lb 2 oz BMI 27.0 BP 154/98 H Blood Pressure Location Lt brachial Position Sitting Pulse 73 Pulse Source Pulse Oximeter Temp 97.5 F Temp Source Temporal Artery Scan Pulse Oximetry (%) 98 Oxygen Delivery Method Room Air Intake Visit Reasons: MICHA Dr Lopez Allergies No Known Allergies (No Known Allergies*) Allergy (Verified 04/28/25 12:19) Medication List - Last Reconciled 04/28/25 by Dustin Jorge MD buprenorphine-naloxone 8-2 mg (Suboxone) 1 film sublingual TID 30 days clotrimazole-betamethasone 1-0.05 % 1 appl topical BID 2 weeks cyclobenzaprine 10 mg PO TID nicotine apply 1-21 mg NICOTINE PATCH daily for 28 days; follow with 1-14 mg PATCH daily for 14 days, then 1-7mg PATCH daily for 14 days transdermally every 24 hours; 56 days Tobacco use date assessed: 04/28/25 Dental Screening Dental Screen Date: 04/28/25 Did you have a dental visit in the last 12 months?: Yes Did you have a dental problem in the last 6 months where you did not have access to dental care?: No Was dental information given to patient?: Patient has dentist HPI MICHA Dr Lopez HPI Details Patient comes in today for her follow up visit - is transferring over from Dr. Lopez, who retired from the practice a few months ago States that she feels well and other than recreational marijuana use, she has not had any relapse with her opioid use disorder lately States that she has not used any opioids since 2019 She denies any headaches or dizziness Denies any chest pains, no SOB No nausea/vomiting, no abdominal pain No change in bowel habits noted [facility] Medical History (Updated 04/30/25 @ 12:26 by Dustin Jorge MD) Overweight (BMI 25.0-29.9) Smoker Lumbar degenerative disc disease Tobacco use disorder Fentanyl use disorder, moderate Opioid use disorder Disc degeneration, lumbar Right lumbar radiculopathy Surgical History History of foot surgery History of carpal tunnel surgery of left wrist H/O section Cervical post-laminectomy syndrome Family History Father Stroke Mother Ovarian cancer Brother No problems noted. Son No problems noted. Son No problems noted. 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 1. Little interest or pleasure in doing things: several days 2. Feeling down, depressed, or hopeless: not at all 3. Trouble falling or staying asleep, or sleeping too much: not at all 4. Feeling tired or having little energy: not at all 5. Poor appetite or overeating: not at all 6. Feeling bad about yourself - or that you are a failure or have let yourself or your family down: not at all 7. Trouble concentrating on things, such as reading the newspaper or watching television: not at all 8. Moving or speaking so slowly that other people could have noticed. Or the opposite - being so fidgety or restless that you have been moving around a lot more than usual: not at all 9. Thoughts that you would be better off or of hurting yourself in some way: not at all Total score: 1 Depression Screening Interpretation: Negative Depression Screening Done: Yes 69775 - PHQ-9 Billing: Yes Source: Developed by Drs. Raheel Bravo, Sabine Talavera, Qeu Ron and colleagues, with an educational dianne from [employer]. Thrive Questionnaire Date Thrive assessed: 10/29/24 I am a: Patient What is your living situation today?: I have a steady place to live Within the past 12 months, did the food you bought not last and you didn't have the money to get more?: Sometimes True Within the past 12 months, did you worry whether your food would run out before you got money to buy more?: Sometimes True Do you have trouble paying for medicines?: No Do you have trouble getting transportation to medical appointments?: No Do you have trouble paying your heating and electricity bill?: No Do you have trouble taking care of your child, family member or friend?: No Do you have trouble with day-to-day activities such as bathing, preparing meals, shopping, managing finances, etc.?: I choose not to answer this question Are you currently unemployed and looking for a job?: I choose not to answer this question Are you interested in more education?: I choose not to answer this question Please select the resources that you would like help with: None Currently or been in a relationship where the following occur: No concerns reported THRIVE Score: 2 AUDIT C Alcohol Use Questionnaire (AUDIT-C) 1. How often do you have a drink containing alcohol?: Never 3. How often do you have six or more drinks on one occasion?: Never Total Score: 0 Score Reviewed/Action Taken: Yes FRANCISCO-7 AMB Questionnaire FRANCISCO-7 Date FRANCISCO - 7 assessed: 10/29/24 Feeling nervous, anxious, or on edge: 0 = Not at all Not being able to stop or control worryin = Not at all Worrying too much about different things: 0 = Not at all Trouble relaxin = Not at all Being so restless that it is hard to sit still: 0 = Not at all Becoming easily annoyed or irritable: 0 = Not at all Feeling afraid as if something awful might happen: 0 = Not at all Total FRANCISCO-7 score (0-4 normal; 5-9 mild; 10-14 moderate; 15-21 severe): 0 Source: Developed by Drs. Raheel Bravo, Sabine Talavera, Que Ron and colleagues, with an educational dianne from [employer]. Review of Systems Const Denies chills, Denies fatigue, Denies fever(s) and Denies headache(s) ENT Denies dysphagia, Denies dizziness, Denies otalgia, Denies headache(s), Denies neck pain, Denies odynophagia and Denies sore throat Card Denies chest pain, Denies palpitations and Denies dyspnea Resp Denies chest congestion, Denies cough and Denies dyspnea GI Denies abdominal pain, Denies constipation, Denies dysphagia, Denies heartburn, Denies diarrhea, Denies nausea, Denies odynophagia and Denies vomiting Denies difficulty voiding, Denies nocturia, Denies dysuria and Denies urinary urgency Musc Denies back pain and Denies neck pain Skin/Breast Denies rash Neuro Denies dizziness and Denies headache(s) Endo Denies fatigue and Denies palpitations Physical exam (Primary Care) Vital Signs: Last Vital Signs Temp 97.5 F 04/28/25 11:36 Pulse 73 04/28/25 11:36 BP 154/98 H 04/28/25 11:36 Pulse Ox 98 04/28/25 11:36 Oxygen Delivery Method Room Air 04/28/25 11:36 BMI result Body Mass Index 27.0 Tobacco/Smoking Status: Tobacco use Status Tobacco use date assessed 04/28/25 04/28/25 11:40 Patient Tobacco Use Status Current everyday Tobacco 04/28/25 11:40 Tobacco use type Cigarette 04/28/25 11:40 e-Cigarette/Vaping Use Never Used 04/28/25 11:40 PHQ-9: PHQ-9 Score PHQ-9: Total score 1 04/28/25 12:20 Depression Screening Interpretation: Negative Thrive Assessment: Date of Thrive Assessment Date Thrive assessed 10/29/24 04/28/25 11:40 Currently or been in a relationship where the following occur: No concerns reported Const General: no acute distress and alert HENMT Ears: TM's normal bilaterally and EAC's normal Throat: Yes posterior oropharynx normal and Yes tonsils normal (no TP congestion) Neck Neck: Yes supple and No lymphadenopathy Thyroid: Thyroid normal Resp Auscultation: clear to auscultation bilaterally, no rales and no wheezes Cardio Rate: regular rate Rhythm: regular rhythm Heart sounds: no murmurs GI Palpation (GI): Soft to palpation and nontender Auscultation: normal bowel sounds General: Yes no CVA tenderness Back/Spine/Pelvis Back: no CVA tenderness Thoracic/Lumbar Spine: No lumbar spinal tenderness Skin Rashes: no rashes Extrem General: Yes no clubbing, cyanosis or edema Coding Level of Care Code Est Pt Level 4 (70835) Diagnoses Degeneration of intervertebral disc of lumbar region with discogenic back pain M51.360 Disc-related pain type: discogenic back pain only Opioid use disorder in remission F11.91 Smoker F17.200 Overweight (BMI 25.0-29.9) E66.3 Additional Codes PHQ-9 - 05291 - PHQ-9 Billing: Yes ([id number]) Assessment & Plan Assessment & Plan (1) Lumbar degenerative disc disease: Code(s): M51.369 - Other intervertebral disc degeneration, lumbar region without mention of lumbar back pain or lower extremity pain Category: Medical Qualifiers: Disc-related pain type: discogenic back pain only Qualified Code(s): M51.360 - Other intervertebral disc degeneration, lumbar region with discogenic back pain only Plan: Reinforced activity and weight lifting restrictions Continue Cyclobenzaprine 10 mg TID PRN (2) Opioid use disorder in remission: Code(s): F11.91 - Opioid use, unspecified, in remission Category: Medical Plan: Continue Suboxone 2 mg film TID Follow-up with addiction medicine as scheduled (3) Smoker: Code(s): F17.200 - Nicotine dependence, unspecified, uncomplicated Category: Social Hx Plan: Patient is counseled on complete smoking cessation (4) Overweight (BMI 25.0-29.9): Code(s): E66.3 - Overweight Category: Medical Plan: Reinforced diet/exercise as tolerated/lose weight Plan As she has not had any follow up labs done in a while, will have her get some follow up labs done BALTA To return in 6 months for her next annual physical examination Orders: Orders TSH reflex Free T4 04/28/25 E78.00 - Pure hypercholesterolemia, unspecified Vitamin B12 and Folate 04/28/25 E53.8 - Deficiency of other specified B group vitamins Complete Blood Count Auto Diff 04/28/25 D64.9 - Anemia, unspecified Comprehensive [place]. Panel Fast 04/28/25 E78.00 - Pure hypercholesterolemia, unspecified Lipid Panel 04/28/25 E78.00 - Pure hypercholesterolemia, unspecified UA CC w/rflx Micro + Cult 04/28/25 R30.0 - Dysuria Vitamin D 25-OH Total 04/28/25 E55.9 - Vitamin D deficiency, unspecified Hemoglobin A1c 04/28/25 R73.9 - Hyperglycemia, unspecified
--- OUTSIDE RECORDS SUMMARY | 2025-04-28 12:51 | XMS_ITS | Patient Health Record ---
Demographics Address [address] [place] [address] [place] [address] Preferred Language en Marital Status Mandaeism Affiliation Unknown Race White Ethnic Group Not or Lati no Author Organization [facility] Address [address] [address] Support Name Relationship Address Phone HoskinsBar burgos Emergency Contact [address] [place] [id number] Netta Hoskins Guarantor Unknown [phone] Care Team Providers Care Feather Sawyer Name Role Phone David Lopez MD Primary Care Provider Tacho [place] Unavailable [phone] Reason For Referral No Information Medications Medication [...] Tartrate 5 MG 1 tablet at bedti ia Orally Once a day PRN Active oxyCODONE-Acetaminophen [...] Status Risk Notes Problem Acquired hallux valgus (36706796) Hallux valgus (acquired), right foot (M20.11) Active confirmed Problem Acquired hallux rigidus (6591179) Hallux rigidus, left foot (M20.22) Active confirmed Problem Acquired hammer toe of right foot (1985849677347 105) Other hammer toe(s) (acquired), right foot (M20.41) Active confirmed Problem Acquired hammer toe of left foot (0430487477714 103) Other hammer toe(s) (acquired), left foot (M20.42) Active confirmed Problem Acquired hallux rigidus (9278883) Hallux rigidus, right foot (M20.21) Active confirmed Plan Of Treatment Pending Test Test Name Order Date X ray : Foot, left 2V 05/25/2014 X ray : Foot, left 2V 10/01/2018 X ray : Foot, right 2V 10/01/2018 X ray : Foot, right 2V 07/31/2016 X ray : Foot, right 3V 05/10/2019 X ray : Foot, right 3V 05/24/2019 [id number] Plate 05/25/2014 [id number] OF HEMATOMA/FLUID 019 ,[id number] TENDON SHEATH/LIGAMENT 1 09/30/2015,[id number] TENDON SHEATH/LIGAMENT 1 09/03/2013 Insurance Providers Payer Name Payer Address Payer Phone Subscriber Number Group Number Insured Name Patient Relationship to Insured Coverage Start Date Coverage End Date [facility] [address] [place] [address] [id number] Bar Hoskins Spouse - patient is the spouse of the insured Medical (General) History Medical History History ICD Code Arthritis Back,Hip,and Knee pain Chicken pox Surgical History Surgery Date(Month/Year) disc replacement neck Total Matricectomy L 1-3 11/19/2018 P&A Nail Matricectomy R1,3 03/18/2019 HT R2nd, Ten&Cap R2nd MTPJ 05/2019
== END 2025-04-28 12:28 | disposition home or self-care (01) ==
LOC: HO.HMCH 11:35
PROVIDERS: PCP Internal Medicine; Visit Provider Internal Medicine
DX: M51.360 Other intervertebral disc degeneration, lumbar region with discogenic back pain only (principal); F11.91 Opioid use, unspecified, in remission; F17.200 Nicotine dependence, unspecified, uncomplicated; E66.3 Overweight

== ENCOUNTER 2025-05-24 13:26 | Outpatient (AMB) | payer OTHER, SELFPAY ==
--- NOTE | 2025-05-24 13:33 | MHC.OFFVIS ---
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 Intake Note: new patient annual Information Interpreted: non-clinical & clinical Gasoline Pump Installer: Gasoline Pump Installer Present (Ann) Accompanied by: Self / Same As Patient Allergies No Known Allergies (No Known Allergies*) Allergy (Verified 05/24/25 13:36) Medication List - Last Reconciled 05/24/25 by Ramya Louise LPN buprenorphine-naloxone 8-2 mg (Suboxone) 1 film sublingual TID 30 days clotrimazole-betamethasone 1-0.05 % 1 appl topical BID 2 weeks cyclobenzaprine 10 mg PO TID nicotine apply 1-21 mg NICOTINE PATCH daily for 28 days; follow with 1-14 mg PATCH daily for 14 days, then 1-7mg PATCH daily for 14 days transdermally every 24 hours; 56 days Is last menstrual period known: No Post menopausal: No Patient : No Do you need a note to return to daycare/school/sports/work: No HPI Comments Details: Patient is a postmenopausal woman presenting for her new patient annual 3rd mate examination. 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 Currently not sexually active, last August. Attempting to eat a healthy diet, has difficulties with dental concerns, takes calcium and vitamin D and stays active with exercise. Last pap smear; unknown history. Last mammogram; unknown history. Colonoscopy is not UTD. FH ovarian cancer. [facility] Medical History Overweight (BMI 25.0-29.9) Smoker Lumbar degenerative disc disease Tobacco use disorder Fentanyl use disorder, moderate Opioid use disorder Disc degeneration, lumbar Right lumbar radiculopathy Surgical History History of foot surgery History of carpal tunnel surgery of left wrist H/O section Cervical post-laminectomy syndrome Family History Father Stroke Mother Ovarian cancer Brother No problems noted. Son No problems noted. Son No problems noted. 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 Cognitive needs: No Hearing needs: No Vision needs: No Female Reproductive History Menstrual Age of Menarche: 14 Menopause type: natural Date of menopause: 05/24/15 Total pregnancies: 2 Number of Living Children: 2 History of abnormal pap smear: No History of STI: No History of abnormal mammogram: No Review of Systems Const All systems reviewed & are unremarkable except as noted in HPI and below Reports as per HPI Eyes Reports no additional complaints ENT Reports no additional complaints Card Reports no additional complaints Resp Reports no additional complaints GI Reports as per HPI and Reports no additional complaints Reports as per HPI Musc Reports no additional complaints Skin/Breast Reports as per HPI Neuro Reports no additional complaints Psych Reports no additional complaints Endo Reports no additional complaints Osmar/Lymph Reports no additional complaints Aller/Immun Reports no additional complaints Physical Exam Vital Signs: Last Vital Signs BP 134/84 05/24/25 13:44 BMI result Body Mass Index 27.0 Const General: cooperative, healthy appearing, no acute distress, well developed and alert Orientation/consciousness: patient oriented x3 HEENT Head: Yes normal to inspection Eyes General: appearance normal, both eyes and all related structures Neck Neck: Yes normal visual inspection Thyroid: Thyroid normal Chest Chest palpation & inspection: normal inspection of the chest and other (no puckering, dimpling, peau de orange, retraction, discharge, masses) Breast/axilla inspection: normal inspection of the breasts Breast/axilla palpation: normal palpation of the breasts Resp Effort & Inspection: normal respiratory effort GI Inspection: Yes normal to inspection Palpation (GI): Soft to palpation Rectal Exam - Female: deferred General: Yes bladder normal to palpation External Female Exam: normal external appearance and normal appearance of the urethra Speculum Exam - Vagina: normal appearance of the vagina, normal palpation, normal vaginal discharge and vagina atrophic Speculum Exam - Cervix: normal appearance of the cervix, normal palpation and Other cervical findings present (Atrophic changes bled with Pap) Bimanual exam- vagina & uterus: normal bimanual exam, normal palpation, uterine size normal, bladder normal to palpation, normal palpation and non-tender Bimanual Exam- Adnexa, other: no masses Skin General skin exam: no rashes or lesions noted Rashes: no rashes Neuro General: patient oriented x3 Cognition (Neuro): normal cognition Extrem General: Yes normal to inspection Psych Attitude: cooperative Thought process: Normal thought process present Assessment & Plan Assessment & Plan (1) Encounter for well woman exam with routine gynecological exam: Code(s): Z01.419 - Encounter for gynecological examination (general) (routine) without abnormal findings Category: Medical Plan: Discussed: Current recommendations for pap smears per ASCCP guidelines. Pap obtained. GC chlamydia and BV panel obtained, await results for final plan of care. Breast awareness, periodic self breast exams and yearly mammogram. Maintain a healthy lifestyle, well balanced diet including Calcium 1,200 mg and Vitamin D 600 IU daily, and routine exercise. Dietary, calcium in osteoporosis prevent information handouts given. Use of condoms for STI prevention if indicated. Contact the office with any postmenopausal bleeding. Patient verbalizes understanding and agrees to the plan of care. She was given opportunity to ask questions and all questions were answered to the best of my ability. RTO in 1 year for annual 3rd mate exam. This note is constructed using voice recognition software. While every effort has been made to ensure accuracy, juvenile detention officer errors may have been included. (2) Dryness of vulva: Code(s): N90.89 - Other specified noninflammatory disorders of vulva and perineum Plan BV panel and GC chlamydia obtained. Discussed various products [id number] such as vulval balms, versus hormonal treatment. Products to avoid. The patient expressed understanding and agreement with the plan of care. All of her questions and concerns were addressed to the best of my ability. This note is constructed using voice recognition software. While every effort has been made to ensure accuracy, juvenile detention officer errors may have been included. Orders: Orders MM tomosynthesis screening BI Today Z12.31 - Encounter for screening mammogram for malignant neoplasm of breast HPV High risk Today Z00.00 - Encounter for general adult medical examination without abnormal findings Pap Smear Today Z00.00 - Encounter for general adult medical examination without abnormal findings CT NG by PCR Vag/Cerv Today Z11.3 - Encounter for screening for infections with a predominantly sexual mode of transmission Bacterial Vaginosis Panel Today Z11.3 - Encounter for screening for infections with a predominantly sexual mode of transmission Coding Level of Care Code New Pt Prev Care 40-64y(17722) Diagnoses Encounter for well woman exam with routine gynecological exam Z01.419 Dryness of vulva N90.89
[2025-05-24 13:44] VITALS: BP 134/84; BMI 27.0
--- OUTSIDE RECORDS SUMMARY | 2025-05-24 16:29 | XMS_ITS | Patient Health Record ---
Demographics Address [address] [place] [address] [place] [address] Preferred Language en Marital Status Synagogue Affiliation Unknown Race White Ethnic Group Not or Lati no Author Organization [facility] [place] Address [address] [place] [address] Support Name Relationship Address Phone HoskinsBar burgos Emergency Contact [address] [place] [id number] Netta Hoskins Guarantor Unknown [phone] Care Team Providers Care Restaurant Inspector Name Role Phone David Lopez MD Primary Care Provider Tacho [place] Unavailable [phone] Reason For Referral No Information Medications Medication [...] Tartrate 5 MG 1 tablet at bedti nj Orally Once a day PRN Active oxyCODONE-Acetaminophen [...] Status Risk Notes Problem Acquired hallux valgus (44376953) Hallux valgus (acquired), right foot (M20.11) Active confirmed Problem Acquired hallux rigidus (0965916) Hallux rigidus, left foot (M20.22) Active confirmed Problem Acquired hammer toe of right foot (8690005017751 105) Other hammer toe(s) (acquired), right foot (M20.41) Active confirmed Problem Acquired hammer toe of left foot (0228198395373 103) Other hammer toe(s) (acquired), left foot (M20.42) Active confirmed Problem Acquired hallux rigidus (0769788) Hallux rigidus, right foot (M20.21) Active confirmed Plan Of Treatment Pending Test Test Name Order Date X ray : Foot, left 2V 05/25/2014 X ray : Foot, left 2V 10/01/2018 X ray : Foot, right 2V 10/01/2018 X ray : Foot, right 2V 07/31/2016 X ray : Foot, right 3V 05/10/2019 X ray : Foot, right 3V 05/24/2019 [id number] Plate 05/25/2014 [id number] OF HEMATOMA/FLUID 019 ,[id number] TENDON SHEATH/LIGAMENT 1 09/30/2015,[id number] TENDON SHEATH/LIGAMENT 1 09/03/2013 Insurance Providers Payer Name Payer Address Payer Phone Subscriber Number Group Number Insured Name Patient Relationship to Insured Coverage Start Date Coverage End Date [facility] [address] [place] [phone] [id number] Bar Hoskins Spouse - patient is the spouse of the insured Medical (General) History Medical History History ICD Code Arthritis Back,Hip,and Knee pain Chicken pox Surgical History Surgery Date(Month/Year) disc replacement neck Total Matricectomy L 1-3 11/19/2018 P&A Nail Matricectomy R1,3 03/18/2019 HT R2nd, Ten&Cap R2nd MTPJ 05/2019
== END 2025-05-24 15:16 | disposition home or self-care (01) ==
LOC: HO.HWS 13:26
PROVIDERS: PCP Internal Medicine; Visit Provider Advanced Practice Midwife
DX: Z01.419 Encounter for gynecological examination (general) (routine) without abnormal findings (principal); N90.89 Other specified noninflammatory disorders of vulva and perineum
CPT/HCPCS: 99386; 99459

== ENCOUNTER 2025-05-24 13:26 | Outpatient (REF) | payer OTHER, SELFPAY | END 2025-05-24 13:27 | disposition home or self-care (01) | LOC: HO.LNP 13:26 | PROVIDERS: PCP Internal Medicine; Visit Provider Advanced Practice Midwife | DX: Z01.419 Encounter for gynecological examination (general) (routine) without abnormal findings (principal); N90.89 Other specified noninflammatory disorders of vulva and perineum; Z12.31 Encounter for screening mammogram for malignant neoplasm of breast | CPT/HCPCS: 87626; 88175; 99386 ==

== ENCOUNTER 2025-05-24 14:12 | Outpatient (REF) | payer OTHER, SELFPAY ==
[2025-05-25 02:45] LABS: Bacterial Vaginosis PCR POSITIVE (Negative); Candida Group PCR NOT DETECTED (Not Detect); Candida glab krusei PCR NOT DETECTED (Not Detect); Trichomonas vaginalis PCR NOT DETECTED (Not Detect)
[2025-05-25 05:21] LABS: CT PCR NOT DETECTED (Not Detect.); NG PCR NOT DETECTED (Not Detect.)
== END 2025-05-24 14:13 | disposition home or self-care (01) ==
LOC: HO.LAB 14:12
PROVIDERS: Visit Provider Advanced Practice Midwife
DX: Z00.00 Encounter for general adult medical examination without abnormal findings (principal); Z11.3 Encounter for screening for infections with a predominantly sexual mode of transmission; Z11.8 Encounter for screening for other infectious and parasitic diseases
CPT/HCPCS: 81515; 87491; 87591

== ENCOUNTER 2025-05-26 12:58 | Outpatient (AMB) | payer OTHER, SELFPAY ==
[2025-05-26 13:02] VITALS: BP 126/78; PULSE 74; O2SAT 97; BMI 27.5
--- NOTE | 2025-05-26 13:02 | A.OFFVIS_ITS ---
Vital Signs 05/26/25 13:02 Height 5 ft 5 in Weight 165 lb BMI 27.5 BP 126/78 Pulse 74 Pulse Oximetry (%) 97 Intake Visit Reasons: MAT Allergies No Known Allergies (No Known Allergies*) Allergy (Verified 05/26/25 13:03) HPI Comments Details: The patient is a 64-year-old female presenting for a follow-up for Opioid Use Disorder and Nicotine Use Disorder management. She is currently continuing buprenorphine-naloxone 8-2 mg TID. There is documented improvement in her condition, maintaining adherence to the regimen, and engaging actively in risk reduction activities. Concurrent management involves the cessation of smoking, initially at 0.5 packs per day, now reduced to six cigarettes per day. The patient has deferred initiation of nicotine patch therapy but remains committed to decreasing her smoking frequency. Engagement in proactive behaviors and ongoing evaluation will guide progress and further interventions. [facility] Medical History Overweight (BMI 25.0-29.9) Smoker Lumbar degenerative disc disease Tobacco use disorder Fentanyl use disorder, moderate Opioid use disorder Disc degeneration, lumbar Right lumbar radiculopathy Surgical History History of foot surgery History of carpal tunnel surgery of left wrist H/O section Cervical post-laminectomy syndrome Family History Father Stroke Mother Ovarian cancer Brother No problems noted. Son No problems noted. Son No problems noted. 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 Cognitive needs: No Hearing needs: No Vision needs: No Female Reproductive History Menstrual Age of Menarche: 14 Date of menopause: 05/24/15 Review of Systems Const All systems reviewed & are unremarkable except as noted in HPI and below Physical Exam Vital Signs: Last Vital Signs Pulse 74 05/26/25 13:02 BP 126/78 05/26/25 13:02 Pulse Ox 97 05/26/25 13:02 BMI result Body Mass Index 27.5 Const General: cooperative Psych Appearance: well kempt Mental Status: mental status grossly normal Speech and movement: Normal speech and movement present Affect: normal affect Attitude: cooperative Thought content: Normal thought content present Insight: Good insight present (Psych) Judgement: Good judgement present (Psych) Assessment & Plan Assessment & Plan (1) Opioid use disorder, moderate, in sustained remission: Code(s): F11.21 - Opioid dependence, in remission Category: Medical (2) Nicotine dependence, cigarettes, uncomplicated: Code(s): F17.210 - Nicotine dependence, cigarettes, uncomplicated Category: Medical Plan Continue monitoring nicotine use and reduction. Current plan does not include nicotine patches, focusing instead on further smoking reduction. Scheduled follow-up in two months to assess progress and consider additional strategies if necessary. Continue buprenorphine-naloxone as prescribed. Follow-up scheduled in two months to reassess treatment and make any necessary medication adjustments, ensuring benefits in reducing opioid cravings and dependence. Medications: Refilled buprenorphine-naloxone 8-2 mg (Suboxone) One film sublingual-three times per day. 1 film sublingual TID 90 ea 1RF 30 days Patient Instructions: - Continue taking buprenorphine-naloxone as prescribed. - Work on reducing smoking further. - Engage in risk reduction activities. - Contact if there are any concerns about medication or symptoms. - Follow-up appointment in two months. - The patient verbalized understanding and agreed with plan of care. Scribe Plan - Not visible on output: Patient was informed and verbally consented to the use of an ambient scribe for clinical note documentation during this visit. Coding Level of Care Code Est Pt Level 3 (38037) Diagnoses Opioid use disorder, moderate, in sustained remission F11.21 Nicotine dependence, cigarettes, uncomplicated F17.210
--- OUTSIDE RECORDS SUMMARY | 2025-05-26 17:43 | XMS_ITS | Patient Health Record ---
Demographics Address [address] [place] [address] Preferred Language en Marital Status Sabianism Affiliation Unknown Race White Ethnic Group Not or Lati no Author Organization [facility] [place] Address [address] [facility] [place] [address] Support Name Relationship Address Phone HoskinsBar burgos Emergency Contact [address] [place] [id number] Netta Hoskins Guarantor Unknown [phone] Care Team Providers Care Clinical Account Manager Name Role Phone David Lopez MD Primary Care Provider Tacho [place] Unavailable [phone] Reason For Referral No Information Medications Medication [...] Status Risk Notes Problem Acquired hallux valgus (82150802) Hallux valgus (acquired), right foot (M20.11) Active confirmed Problem Acquired hallux rigidus (5507653) Hallux rigidus, left foot (M20.22) Active confirmed Problem Acquired hammer toe of right foot (5473837811750 105) Other hammer toe(s) (acquired), right foot (M20.41) Active confirmed Problem Acquired hammer toe of left foot (5014506962152 103) Other hammer toe(s) (acquired), left foot (M20.42) Active confirmed Problem Acquired hallux rigidus (5478606) Hallux rigidus, right foot (M20.21) Active confirmed Plan Of Treatment Pending Test Test Name Order Date X ray : Foot, left 2V 05/25/2014 X ray : Foot, left 2V 10/01/2018 X ray : Foot, right 2V 10/01/2018 X ray : Foot, right 2V 07/31/2016 X ray : Foot, right 3V 05/10/2019 X ray : Foot, right 3V 05/24/2019 [id number] Plate 05/25/2014 [id number] OF HEMATOMA/FLUID 019 ,[id number] TENDON SHEATH/LIGAMENT 1 09/30/2015,[id number] TENDON SHEATH/LIGAMENT 1 09/03/2013 Insurance Providers Payer Name Payer Address Payer Phone Subscriber Number Group Number Insured Name Patient Relationship to Insured Coverage Start Date Coverage End Date [facility] [address] [place] [id number] Bar Hoskins Spouse - patient is the spouse of the insured Medical (General) History Medical History History ICD Code Arthritis Back,Hip,and Knee pain Chicken pox Surgical History Surgery Date(Month/Year) disc replacement neck Total Matricectomy L 1-3 11/19/2018 P&A Nail Matricectomy R1,3 03/18/2019 HT R2nd, Ten&Cap R2nd MTPJ 05/2019
== END 2025-05-26 13:14 | disposition home or self-care (01) ==
LOC: HO.HCC 12:58
PROVIDERS: PCP Internal Medicine; Visit Provider Clinical Nurse Specialist Psychiatric/Mental Health
DX: F11.21 Opioid dependence, in remission (principal); F17.210 Nicotine dependence, cigarettes, uncomplicated
CPT/HCPCS: 99213

== ENCOUNTER → 2025-05-26 12:58 | Outpatient (BNVA) | payer OTHER, SELFPAY | PROVIDERS: PCP Internal Medicine; Visit Provider Clinical Nurse Specialist Psychiatric/Mental Health | DX: F11.21 Opioid dependence, in remission (principal); F17.210 Nicotine dependence, cigarettes, uncomplicated | CPT/HCPCS: 99212 ==

== ENCOUNTER 2025-07-26 12:58 | Outpatient (AMB) | payer OTHER, SELFPAY ==
--- NOTE | 2025-07-26 13:25 | A.OFFVIS_ITS ---
Vital Signs 07/26/25 13:26 BP 144/80 H Pulse 90 Pulse Oximetry (%) 96 Intake Visit Reasons: MAT Allergies No Known Allergies (No Known Allergies*) Allergy (Verified 07/26/25 13:27) HPI Comments Details: A 64-year-old female presents for a follow-up visit r/t TRAE in sustained remission with buprenorphine-naloxone 8-2 mg TID. Denies use of opiates, alcohol, and other substances. Reports continuing to smoke cigarettes and cannabis. [facility] Medical History Overweight (BMI 25.0-29.9) Smoker Lumbar degenerative disc disease Tobacco use disorder Fentanyl use disorder, moderate Opioid use disorder Disc degeneration, lumbar Right lumbar radiculopathy Surgical History History of foot surgery History of carpal tunnel surgery of left wrist H/O section Cervical post-laminectomy syndrome Family History Father Stroke Mother Ovarian cancer Brother No problems noted. Son No problems noted. Son No problems noted. 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 Cognitive needs: No Hearing needs: No Vision needs: No Female Reproductive History Menstrual Age of Menarche: 14 Date of menopause: 05/24/15 Review of Systems Const All systems reviewed & are unremarkable except as noted in HPI and below Physical Exam Vital Signs: Last Vital Signs Pulse 90 07/26/25 13:26 BP 144/80 H 07/26/25 13:26 Pulse Ox 96 07/26/25 13:26 Const General: cooperative Assessment & Plan Assessment & Plan (1) Opioid use disorder, moderate, in sustained remission: Code(s): F11.21 - Opioid dependence, in remission Category: Medical Plan The plan of care is to continue with buprenorphine-naloxone 8-2 mg TID and follow-up in 2 months or sooner if needed. Medications: Refilled buprenorphine-naloxone 8-2 mg (Suboxone) One film sublingual-three times per day. 1 film sublingual TID 90 ea 1RF 30 days Patient Instructions: - Continue with buprenorphine-naloxone as prescribed. - Follow-up in 2 months via telehealth or sooner if needed. - Call with questions, concerns, or to report side effects/new onset of symptoms to [facility]. - The patient verbalized understanding and agreed with plan of care. Coding Level of Care Code Est Pt Level 3 (14056) Diagnoses Opioid use disorder, moderate, in sustained remission F11.21
[2025-07-26 13:26] VITALS: BP 144/80; PULSE 90; O2SAT 96
--- OUTSIDE RECORDS SUMMARY | 2025-07-26 16:41 | XMS_ITS | Patient Health Record ---
Demographics Address [address] [place] [address] Preferred Language en Marital Status Mormonism Affiliation Unknown Race White Ethnic Group Not or Lati no Author Organization [facility] [place] Address [address] [facility] [place] [address] Support Name Relationship Address Phone [place], [place] Emergency Contact [address] [facility] [address] [place] [id number] HoskinsNetta burgos Guarantor Unknown [phone] Care Team Providers Care Manager Assurance Name Role Phone David Lopez MD Primary Care Provider Tacho Savage Unavailable [phone] Reason For Referral No Information Medications Medication [...] Status Risk Notes Problem Acquired hallux valgus (41268217) Hallux valgus (acquired), right foot (M20.11) Active confirmed Problem Acquired hallux rigidus (9885661) Hallux rigidus, left foot (M20.22) Active confirmed Problem Acquired hammer toe of right foot (0198394555318 105) Other hammer toe(s) (acquired), right foot (M20.41) Active confirmed Problem Acquired hammer toe of left foot (8373120824339 103) Other hammer toe(s) (acquired), left foot (M20.42) Active confirmed Problem Acquired hallux rigidus (1625438) Hallux rigidus, right foot (M20.21) Active confirmed Plan Of Treatment Pending Test Test Name Order Date X ray : Foot, left 2V 05/25/2014 X ray : Foot, left 2V 10/01/2018 X ray : Foot, right 2V 10/01/2018 X ray : Foot, right 2V 07/31/2016 X ray : Foot, right 3V 05/10/2019 X ray : Foot, right 3V 05/24/2019 [id number] Plate 05/25/2014 [id number] OF HEMATOMA/FLUID 019 ,[id number] TENDON SHEATH/LIGAMENT 1 09/30/201516903,[id number]-PRC TENDON SHEATH/LIGAMENT 1 09/03/2013 Insurance Providers Payer Name Payer Address Payer Phone Subscriber Number Group Number Insured Name Patient Relationship to Insured Coverage Start Date Coverage End Date [facility] [address] [place] [phone] [id number] Bar Hoskins Spouse - patient is the spouse of the insured Medical (General) History Medical History History ICD Code Arthritis Back,Hip,and Knee pain Chicken pox Surgical History Surgery Date(Month/Year) disc replacement neck Total Matricectomy L 1-3 11/19/2018 P&A Nail Matricectomy R1,3 03/18/2019 HT R2nd, Ten&Cap R2nd MTPJ 05/2019
== END 2025-07-26 13:32 | disposition home or self-care (01) ==
LOC: HO.HCC 12:59
PROVIDERS: PCP Internal Medicine; Visit Provider Clinical Nurse Specialist Psychiatric/Mental Health
DX: F11.21 Opioid dependence, in remission (principal)
CPT/HCPCS: 99213

== ENCOUNTER → 2025-07-26 12:58 | Outpatient (BNVA) | payer OTHER, SELFPAY | PROVIDERS: PCP Internal Medicine; Visit Provider Clinical Nurse Specialist Psychiatric/Mental Health | DX: F11.21 Opioid dependence, in remission (principal) | CPT/HCPCS: 99212 ==

== ENCOUNTER 2025-08-01 11:56 | Outpatient (REF) | payer OTHER, SELFPAY ==
--- NOTE | ~2025-08-01 | MM_ITS ---
EXAMINATION: MM SCREENING DIGITAL BREAST TOMOSYNTHESIS, BILATERAL CLINICAL INFORMATION: Screening. Asymptomatic. COMPARISON: Mammography: No prior imaging is available for comparison at this time. TECHNIQUE: Digital breast mammography with tomosynthesis is performed in both the craniocaudal and mediolateral oblique views along with computer-aided detection (CAD). FINDINGS: There are scattered areas of fibroglandular density. There are no significant masses, abnormal calcifications, or other abnormalities. MM/MM tomosynthesis screening BI IMPRESSION: No mammographic evidence of malignancy. ASSESSMENT: BI-RADS Category 1: Negative RECOMMENDATION: Routine annual mammography screening. 1 year F/U This examination should not preclude the clinical evaluation of a suspicious palpable abnormality. This patient's information was entered into a reminder system with a target due date for their next mammogram. Electronically signed by: Katia Hallman DO 08/01/2025 12:43 PM [facility]
== END 2025-08-01 11:57 | disposition home or self-care (01) ==
LOC: HO.MAMMO 11:56
PROVIDERS: PCP Internal Medicine; Visit Provider Advanced Practice Midwife
DX: Z12.31 Encounter for screening mammogram for malignant neoplasm of breast (principal)
CPT/HCPCS: 77063; 77067

== ENCOUNTER → 2025-08-01 12:15 | Outpatient (BNV) | payer OTHER, SELFPAY | PROVIDERS: PCP Internal Medicine; Visit Provider Internal Medicine | DX: Z12.31 Encounter for screening mammogram for malignant neoplasm of breast (principal) | CPT/HCPCS: 77063; 77067 ==